=== PATIENT | male | born 1955 | race Caucasian/White ===

== ENCOUNTER 2018-01-01 18:50 | Inpatient (IN) | payer OTHER ==
[~2018-01-01] VITALS: Ht 175.3 cm; Wt 74.4 kg
--- NOTE | 2018-01-01 22:45 | NUR ---
PT ARRIVED TO FLOOR VIA STRETCHER. PT ABLE TO STAND AND TRANSFER TO THE BED. PT RATING PAIN AT 6/10. STATES THAT HIS PAIN IS OK AT THIS TIME. PT DENIES NAUSEA OR SOB. LUNG SOUNDS DIM AND CLEAR EXCEPT FOR CRACKLES TO LLL. ABD MILDLY DISTENDED, BT'S ACTIVE, TENDER TO PALPATION. PT REQUESTING CHOCOLATE MILK, REPORTS PREVIOUSLY POOR APPETITE AT HOME. PT REPORTS FALLING AFTER TRIPPING OUTSIDE RECENTLY. PT ORIENTED TO ROOM, REMINDED NOT TO AMBULATE OR ATTEMPT TO GET OUT OF BED WITHOUT ASSISTANCE. PT STATES UNDERSTANDING, CALL LIGHT IS IN PT'S LAP.
--- NOTE | 2018-01-02 01:31 | NUR ---
PT RESTING IN BED WITH EYES CLOSED. PT WAKES EASILY WHILE DATA CENTER TECHNICIAN AT BEDSIDE. PT DENIES NEEDS AT THIS TIME. CALL LIGHT WITHIN PT REACH.
--- NOTE | 2018-01-02 03:22 | NUR ---
PT RATES PAIN 7/10 TO R FLANK. STATES THAT SOB IS MINIMAL. PRN REQUESTED BY PT. PRN MORPHINE ADMINISTERED. PT DENIES OTHER NEEDS AT THIS TIME. CALL LIGHT WITHIN REACH.
--- NOTE | 2018-01-02 04:15 | NUR ---
PT ASSESSMENT COMPLETE. PT WAKES BRIEFLY DURING ASSESSMENT, QUICKLY FALLS BACK TO SLEEP. PT STATE THAT HE CAN FEEL PAIN MEDICATION WORKING. ASSESSMENT UNCHANGED FROM PRIOR. PT DENIES NEEDS AT THIS TIME. CALL LIGHT WITHIN REACH.
--- NOTE | 2018-01-02 04:54 | NUR ---
PT RESTING IN BED WITH EYES CLOSED. RESPIRATIONS EVEN AND UNLABORED. PT APPEARS TO BE SLEEPING. CALL LIGHT WITHIN REACH.
--- NOTE | 2018-01-02 05:38 | NUR ---
PT SLEPT MOST OF SHIFT. PAIN TO R FLANK. PRN MORPHINE X 1. LUNG SOUNDS CLEAR/DIM. ABD MILDLY DISTENDED, TENDER TO TOUCH. URINE DARK DORON IN COLOR. PT USES URINAL AT SIDE OF BED. NS @ 125. 1 PA.
--- NOTE | 2018-01-02 07:00 | NUR ---
HANDOFF REPORT RECEIVED FROM COST ESTIMATING CLERK RN. PT SLEEPING, LEFT UNDISTURBED.
--- NOTE | 2018-01-02 08:54 | NUR ---
PT RESTING IN BED. PT ON ROOM AIR, LUNG SOUNDS CLEAR. PT RATING PAIN 7/10, WORSE WITH MOVEMENT, REQUESTING PAIN MEDICATION, GIVEN 2 MG IV MORPHINE. PT BOWEL TONES ACTIVE, TOLERATING REGULAR DIET, SMALL APPETITE. IV FLUIDS INFUSING NS AT 125 ML/HR. PT REPORT OF RIGHT HAND NUMBNESS FOR SEVERAL MONTHS, AT BASELINE. PT PULSES PALPABLE. DISCUSSED PLAN OF CARE FOR THE DAY. PT DENIES OTHER NEEDS AT THIS TIME.
--- NOTE | 2018-01-02 09:27 | NUR ---
PATIENT RELAXED IN BED, EYES CLOSED, WAKING EASILY UPON CALLING HIS NAME. VITALS AND I/OS CHARTED. CALL LIGHT IN REACH PATIENT REFUSED ORDERING BREAKFAST, REQUESTED JELLO AND MILK.
--- NOTE | 2018-01-02 11:57 | NUR ---
PT RESTING IN BED. PT STATES PAIN IS OK AT THIS TIME, DISCUSSED CHANGES TO MEDICATIONS, PT UNDERSTANDS TO CALL WHEN NEEDING PAIN MEDICATION. PT ON ROOM AIR, LUNG SOUNDS CLEAR. BOWEL TONES ACTIVE, DENIES NAUSEA, PROVIDED WITH SODA. SCDS TO BLE, WITHOUT EDEMA. NO ACUTE CHANGES. PT DENIES OTHER NEEDS AT THIS TIME.
--- NOTE | 2018-01-02 13:19 | NUR ---
PT REQUESTING PAIN MEDICATION, DISCUSSED IV DILAUDID VS NORCO. PT PREFERED TO TRY NORCO, 1 TAB GIVEN, JELLO GIVEN WITH TABLET. PT INSTRUCTED TO CALL IF BEGINING TO FEEL NAUSEATED. PT DENIES OTHER NEEDS AT THIS TIME.
--- NOTE | 2018-01-02 13:56 | NUR ---
PATIENT UP IN BED, FAMILY IN RM TO TALK TO MONY GRANADOS. PATIENT HAD NO APPETITE FOR LUNCH, ATE A SMALL AMOUNT OF JELLO. VITALS AND I/OS CHARTED. CALL LIGHT IN REACH NO OTHER NEEDS.
--- NOTE | 2018-01-02 14:00 | NUR ---
PT SON TO BEDSIDE, REQUESTING UPDATE, PROVIDED. DISCUSSED CT SCAN RESULTS, PLAN OF CARE, GOALS FOR TOMORROW. PT SON, JARED, REQUESTING TO BE PRESENT WHEN DR. JAIMES ROUNDS ON PT TOMORROW, CALLED TO DISCUSS WHAT TIME JARED SHOULD BE AT HOSPITAL, JARED INSTRUCTED TO BE AT BEDSIDE AT 0700.
--- NOTE | 2018-01-02 14:30 | NUR ---
PT REQUESTING PAIN MEDICATION, TOLERATED 1 TAB NORCO WITHOUT NAUSEA, GIVEN SECOND TAB NORCO. PT GIVEN COOL CLOTH FOR FOREHEAD. PT DENIES OTHER NEEDS AT THIS TIME.
--- NOTE | 2018-01-02 18:00 | NUR ---
PATIENT SITTING UP IN BED, ATTEMPTING TO EAT DINNER. PATIENTS FAMILY IN ROOM. PATIENT CALL LIGHT IN REACH. ZEYNEP RINCON TOOK VITALS AND I&O'S. NO OTHER NEEDS AT THIS TIME.
--- NOTE | 2018-01-02 18:53 | NUR ---
PT ON ROOM AIR, LUNG SOUNDS CLEAR. PT WITH RUQ ABD PAIN, GIVEN 2 TAB NORCO THIS EVEING, IV DILAUDID AVAILABLE. PT WITH SCDS TO BLE. BOWEL TONES ACTIVE, DENIES NAUSEA, TOLERATING CLEAR LIQUID DIET, SMALL APPETITE. PT VOIDING IN URINAL, QS, DARK URINE. PT UP WITH 1PA, WEAK. D5LR AT 125ML/HR. PLAN TO DISCHARGE TOMORROW PENDING CASE MANAGEMENT/HOSPICE.
--- NOTE | 2018-01-02 21:41 | NUR ---
PT ASSESSMENT COMPLETE. PT STATES THAT PAIN IS WELL CONTROLLED AT THIS TIME. PT DENIES SOB, NAUSEA. LUNG SOUNDS CLEAR INB BILATERAL UPPER LOBES, DIMINISHED IN BILATERAL LOWER LOBES. ABD DISTENDED. BT'S ACTIVE. PT DENIES BM TODAY, REPORTS PASSING FLATUS. ABD TENDER TO PALPATION. SCD'S IN PLACE. PT UP TO EDGE OF BED TO USE URINAL WITH 1 PA. TOLERATED WELL. URINE REMAINS DARK IN COLOR. PT ASSISTED BACK TO BED. DENIES NEEDS AT THIS TIME. CALL LIGHT WITHIN REACH.
--- NOTE | 2018-01-02 23:55 | NUR ---
PT RESTING IN BED WITH EYES CLOSED. RESPIRATIONS EVEN AND UNLABORED. PT APPEARS TO BE SLEEPING. CALL LIGHT WITHIN PT'S REACH.
--- NOTE | 2018-01-03 02:04 | NUR ---
PT ASSESSMENT COMPLETE. PT UTILIZES CALL LIGHT, REPORTS THAT HE HAS BEEN COUGHING AND IS EXPERIENCING AN INCREASE IN R FLANK PAIN. PT REQUESTS PRN PAIN MEDICATION. NORCO X1 TAB ADMINISTERED. LUNG SOUNDS CLEAR/DIM. OCCASIONAL PRODUCTIVE COUGH. ABD REMAINS DISTENDED, BT'S ACTIVE, ABD TENDER TO PALPATION. PT DENIES FURTHER NEEDS AT THIS TIME. CALL LIGHT WITHIN REACH.
--- NOTE | 2018-01-03 03:10 | NUR ---
PT RESTING IN BED WITH EYES CLOSED. RESPIRATIONS EVEN AND UNLABORED. PT APPEARS TO BE SLEEPING. CALL LIGHT WITHIN REACH.
--- NOTE | 2018-01-03 06:35 | NUR ---
PT SLEPT WELL THROUGHOUT THE NIGHT. PRN NORCO X 1 FOR PAIN. NO SOB OR NAUSEA. ABD TENDER TO TOUCH. PT USES URINAL AT BEDSIDE. UO QS. URINE DORON IN COLOR. 1 MARICRUZ. D5LR @ 125. CLEAR LIQ DIET.
--- NOTE | 2018-01-03 07:35 | NUR ---
THIS RN TO BEDSIDE FOR CONSULT WITH MD, PT AND FAMILY. MD TALKING WITH FAMILY AND PT ABOUT OPTIONS, PROGNOSIS, AND PLAN OF CARE. PT AND FAMILY INVOLVED AND ASKING QUESTIONS. FAMILY VERBALIZE MINIMAL UNDERSTANDING OF INFORMATION PRESENTED BY MED. FAMILY CONTINUES ASKING FOR "A CURE TO GET HIM ALL BETTER BEFORE HE LEAVES THIS HOSPITAL." MD RE-VERBALIZES PLAN OF CARE FOR THIS HOSPITAL STAY. AFTER CONSULT, THIS RN PERFORMS PT ASSESSEMENT. PT REPORTS 6/10 PAIN. (SEE MAR FOR MEDICATION GIVEN.). STRAWBERRY ENSURE PROVIDED PER PT REQUEST. BED RAILSUP. CALL LIGHT WITHIN REACH. FAMILY AT BEDSIDE.
--- NOTE | 2018-01-03 08:10 | NUR ---
PT SLEEPING. NO FAMILY IN ROOM.
--- NOTE | 2018-01-03 08:46 | NUR ---
PATIENT LIGHTLY AWAKES WHEN SPOKEN TO. PATIENT RESTING IN BED, EYES CLOSED. CALL LIGHT IN REACH. NO OTHER NEEDS AT THIS TIME.
--- NOTE | 2018-01-03 09:10 | NUR ---
PATIENT STATES HE WOULD LIKE TO SHOWER LATER TODAY AFTER THERAPY. PATIENT REQUESTED TO REST UNTIL THERAPY COMES IN. CALL LIGHT IN REACH. NO OTHER NEEDS AT THIS TIME.
--- NOTE | 2018-01-03 10:00 | NUR ---
PT APPEARS SLEEPING. SPOKE WITH STAFF NURSE, STATES HE WAS SLEEPING ALOT BETWEEN THINGS.
[2018-01-03] MEDS ORDERED: VENTOLIN HFA18 GM INH (10:02)
--- NOTE | 2018-01-03 10:10 | NUR ---
THIS RN TO ROOM TO CHECK ON PT AND REASSESS PAIN. PT REPORTS IMPROVED PAIN NOW AT 4/10 AND STATES PAIN IS TOLEARABLE AT THIS TIME. PT DROWSY, SLURRED SPEECH NOTED. PT REPORTS SOB. PT REPOSISITONED IN BED. NO S/S OF SOB NOTED WITH MOVEMENT. PT STATES HE USES ALBUTEROL INHALER AT HOME AND WOULD LIKE TO USE ONE NOW BUT DOES NOT HAVE IT WITH HIM. MD NOTIFIED. ALBUTEROL NEBULIZER ORDERED. RT CALLED. RT AT BEDSIDE GIVING NEB REQUESTED BY PT. PT STATES HE HAS NO ADDITIONAL REQUESTS OR COMPLAINTS AT THIS TIME. FAMILIY AT BEDSIDE. CALL LIGHT WITHIN REACH.
--- NOTE | 2018-01-03 11:40 | NUR ---
FOCUSSED ASSESSMENT DUE. THIS RN TO ROOM. PT UP TO EDGE OF BED EATING SOUP. PT REPORT 4/10 PAIN AND STATES HE WOULD LIKE MORE PAIN MEDICAITON. PT ALSO REQUESTS ANOTHER STRAWBERRY SHAKE. FOCUSSED ASSESSMENT DONE. PT REPORTS PASSING GAS BUT STILL NO BM. STRAWBERRY SHAKE PROVIDED. SEE MAR FOR PAIN MEDICATION GIVEN. CALL LIGHT WITHIN REACH. PT STATES HE HAS NO ADDITIONAL REQUESTS OR COMPLAINTS.
--- NOTE | 2018-01-03 12:15 | NUR ---
PT APPEARS SLEEPING. CALLED BRANDEE COLEMAN AT [phone]. PLAN IS TO MEET IN PATIENTS ROOM AT 1330 TODAY.
--- NOTE | 2018-01-03 12:17 | NUR ---
THIS RN NOTIFIED THAT PT HAS NOT HAD A BM IN A WEEK. STATES TO GIVEN MIRALAX 17G PO BID. ORDER PLACED.
--- NOTE | 2018-01-03 12:27 | NUR ---
MEDICATION (MIRALAX) GIVEN ORDERED. PT VISITING WITH CREATIVE RESOURCE MANAGER. NO REQUESTS OR COMPLAINTS.
[2018-01-03] MEDS ORDERED: ALBUTEROL2.5 MG/3 M INH (12:36)
--- NOTE | 2018-01-03 12:53 | NUR ---
PATIENT RESTING IN BED, WHEN ASKED IF HE IS READY TO SHOWER PATIENT STATES HE NEEDS TO REST AWHILE LONGER FIRST. PATIENT CALL LIGHT IN REACH. NO OTHER NEEDS AT THIS TIME. THIS ELEMENTARY INSTRUCTIONAL COACH WILL REAPPROACH AT A LATER TIME.
--- NOTE | 2018-01-03 13:30 | NUR ---
FAMILY NOT PRESENT AT 1330. ARRIVED AT 1345. CARE CONFERENCE DISCUSSED BY PHONE WITH DR JAIMES THIS PATIENTS DIAGNOSIS. HE STATES HE WILL DO WHAT PATIENT WANTS, WHICH SO FAR HAS BEEN TO NOT TREAT. HE STATES PATIENT IS WAITING TO DISCUSS WITH FAMILY HIS WISHES. DR JAIMES STATES HE WILL ORDER ONCOLOGY CONSULT IF PATIENT DESIRES OR HOSPICE IF THAT IS WHAT HE DESIRES. DR LUTZ TO MAKE IT TO ROOM FOR MEETING WITH PATIENT AND FAMILY AT THIS TIME. MET WITH PATIENT, SON JARED AND PATIENTS SIGNIFICANT OTHER. ALSO IN ROOM IS GUILLERMINA RUCKER FOR PART OF DISCUSSION. DISCUSSED FINDINGS OF CT SCAN. DISCUSSED OPTIONS AVAILABLE INCLUDING TREATMENT OR NOT. DISCUSSED POSSIBLE HOSPICE INFORMATION IF DESIRED. PATIENT STATES HE KNOWS ABOUT CANCER AND SUCH. 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 HE STATES HE DOES NOT WANT "TO BE CUT AND PRODED". DISCUSSED THAT BIOPSY CAN BE DONE TO DETERMINE EXACT DIAGNOSIS, ETC. HE STATES "NOPE". PATIENTS SON ALSO SPOKE WITH HIM AT LENGTH ABOUT WHAT HE WANTS. PATIENT IS ADAMAT HE WANTS TO GO HOME AND BE LEFT ALONE. WE DISCUSSED THAT HE HAS NO PCP. WE DISCUSSED THAT HE WILL REQUIRE PAIN MEDS AT LEAST. HE STATES HE WILL SEE DR JAIMES. HE DID ASK ABOUT HOSPICE. SON ALSO ASKING WHAT THIS IS ABOUT. DISCUSSED AT LENGTH THAT HOSPICE CAN PROVIDE SYMPTOM CONTROL WHILE LETTING NATURE TAKE IT'S COURSE. DISCUSSED THAT TO BE HOME ON HOSPICE EITHER FAMILY OR CAREGIVERS WILL NEED TO BE AVAILABLE 24/ TO PROVIDE HELP WITH MEDICATIONS, PERSONAL CARE SUCH TOILETING AND BATHING ETC. PATIENTS SON STATES HE WORKS, BUT THAT HE THINKS BETWEEN HE AND OTHER FAMILY THIS COULD BE DONE. PATIENTS SIGNIFICANT OTHER LIVES WITH PATIENT BUT SHE HAS LIMITED PHYSICAL ABILITIES. SON WANTS TO HELP HIS DAD GO HOME. WE DISCUSSED THAT THERE ARE FACILITIES HE COULD GO TO FOR THE CARE WHILE STILL RECEIVING HOSPICE. PATIENT BECAME UPSET "I'M NOT GOING TO NO GROUP HOME". SON STATES "I DON'T WANT HIM TO HAVE TO DO THAT". THEY ARE OPEN TO RECEIVING MORE INFORMATION FROM HOSPICE PROGRAM. I DID DISCUSS THAT TO BE ON HOSPICE, YOU CAN GET TREATED FOR SYMPTOM CONTROL BUT NOT FOR CURE. PATIENT STATES "THATS WHAT I WANT". SON HAS PAPERWORK FOR ADVANCE DIRECTIVE IN ROOM. ASKING ABOUT POWER OF GENETIC SCIENTIST. ALSO ABOUT EQUIPEMENT FOR HOME. THEY AGREE TO SPEAK WITH LAN MANAGER FROM HOME HEALTH AND HOSPICE PROGRAM. CALLED HOME HEALTH DEPARTMENT, SPOKE WITH CLEMENT WADDELL WHO STATES HE WILL COME VISIT WITH THEM WITHIN THE HOUR.
--- NOTE | 2018-01-03 13:39 | NUR ---
STOPPED BY PT'S RM, RN JOSIAH JUST FINISHING UP CHARTING. PT WELCOMED ME AND SHOOK MY HAND. JUST FELT I SHOULD TOUCH BASES WITH PT, EXTENDED A BLESSING AND HE THANKED ME. LET HIM KNOW I WOULD STOP BY TOMORROW, HE SMILED AND KNODDED. WILL FOLLOW NEEDED
--- NOTE | 2018-01-03 14:19 | NUR ---
THIS RN TO ROOM TO CHECK ON PT. PT REPORTS 4/10 PAIN THAT IS "FINE FOR NOW." PT REPOSITIONED IN BED. FAMILY AT BEDSIDE. CALL LIGHT WITHIN REACH. BED RAILS UP.
--- NOTE | 2018-01-03 14:28 | NUR ---
PATIENT RESTING IN BED, FAMILY IN ROOM. PATIENT REFUSED TO GET UP TO USE THE BATHROOM. RN NOTIFIED. NO KNOWN OUTPUT SINCE 1000. NO OTHER NEEDS AT THIS TIME.
--- NOTE | 2018-01-03 14:36 | NUR ---
MONY RAHMAN PURSUADED PATIENT TO USE URINAL. PATIENT HAD 450 OUTPUT, MONY RAHMAN NOTICED URINE WAS SLIGHTLY DORON IN COLOR. NO OTHER NEEDS AT THIS TIME.
--- NOTE | 2018-01-03 14:37 | NUR ---
FURNITURE FABRICATOR NOTES THAT PT HAS NOT VOIDED SINCE THIS AM. THIS RN TO ROOM. PT ASKED TO VOID. PT ABLE TO VOID 450ML, DORON URINE WITHOUT ISSUE. PT BACK TO BED. PT STATES HE IS "REALLY, REALLY TIRED." FAMILY AT BEDSIDE. BED RAILS UP. CALL LIGHT WITHIN REACH.
--- NOTE | 2018-01-03 15:45 | NUR ---
SUMMER CHW SPOKE WITH PATIENT AND FAMILY AGAIN REGARDING INSURANCE AND ADVANCE DIRECTIVES. SHE STATES TILE MECHANIC HELPER CAME TO SPEAK WITH THEM, ALSO.
--- NOTE | 2018-01-03 17:41 | NUR ---
AFTERNOON ASSESSMENT DUE. THIS RN TO BEDSIDE. PT RESTING WITH EYES CLOSED, RR = 18 BPM. PT AWAKENS TO VOICE. PT REPORTS 5/10 PAIN THAT IS TOLERABLE AND STATES HE DOES NOT WANT PAIN MEDICAITON AT THIS TIME. CHOCOLATE ENSURE PROVIDED. SHOWER OFFERED, PT STATES HE IS "VERY TIRED" AND JUST WANTS TO NAP. BED RAILS UP. CALL LIGHT WITHIN REACH.
--- NOTE | 2018-01-03 17:41 | NUR ---
PATIENT RESTING IN BED. PATIENT REFUSED SHOWER, AND STATED HE DIDNT NEED TO URINATE. THIS CARE PROGRAM RESIDENT EXPLAINED TO PATIENT THAT WE WOULD NEED HIM TO HAVE AN OUTPUT SOON, PATIENT STATES HE WOULD CALL WHEN HE WAS READY. RN IN ROOM. PATIENT SITTING UP IN BED, VITALS TAKEN. THIS CARE PROGRAM RESIDENT WILL RETURN TO FINISH I&O'S AT A LATER TIME.
--- NOTE | 2018-01-03 18:04 | NUR ---
PT HERE FORCHOLEANIOCARCENOMA, NEW DIAGNOSIS. HOSPICE AND CASE MANAGMENT CONSULT TODAY. PHYSICAL THERAPY TODAY. PT DECLINES SHOWER: NEEDS ON TONIGHT IF POSSIBLE. MIRALAX GIVEN TODAY. ADD ON LAB UNDER A NURSE NOTIFY ORDER, LAB AWARE. DIET TOLERATED, ENSURE ENCOURAGED. PT USING CALL LIGHT INCONSISTANTLY.
--- NOTE | 2018-01-03 19:05 | NUR ---
REPORT RECEIVED FROM OFFGOING RN. PT RESTING IN BED WITH EYES CLOSED, APPEARS TO BE SLEEPING. PT NOT DISTURBED FOR REPORT PER HIS REQUEST.
--- NOTE | 2018-01-03 22:16 | NUR ---
PT ASSESSMENT COMPLETE. PT DENIES PAIN, NAUSEA, SOB AT THIS TIME. PT HAS OCCASIONAL PRODUCTIVE COUGH. ABD DISTENDED. BT'S ACTIVE. ABD TENDER TO PALPATION. PT DENIES NEEDS AT THIS TIME. CALL LIGHT WITHIN REACH.
--- NOTE | 2018-01-04 01:46 | NUR ---
PT RSTING IN BED WITH EYES CLOSED. RESPIRATIONS EVEN AND UNLABORED. PT APPEARS TO BE SLEEPING. PT DOES NOT WAKE WHILE POWDER CUTTING OPERATOR IN DOORWAY. NO S/SX OF DISTRESS NOTED. CALL LIGHT WITHIN PT REACH.
--- NOTE | 2018-01-04 05:02 | NUR ---
PT ASSESSMENT COMPLETE. PT STATES THAT PAIN IS WELL CONTROLLED AT THIS TIME. LUNG SOUNDS CLEAR/ DIM. BT'S ACTIVE. ABD DISTENDED, REMAINS TENDER. PT DENIES NEEDS AT THIS TIME. CALL LIGHT WITHIN REACH. PT REQUESTS NOT TO BE DISTRUBED FOR BEDSIDE REPORT IF HE IS SLEEPING.
--- NOTE | 2018-01-04 05:05 | NUR ---
PT SLEPT VERY WELL THIS SHIFT. PT AGREED HE WAS VERY TIRED. PAIN WELL CONTROLLED. NO BM THIS SHIFT. BT'S ACTIVE. DIET TOLERATED. PT DRANK SMALL AMOUNT OF ENSURE THIS SHIFT. 1 PA TO BATHROOM. D5LR @ 125.
--- NOTE | 2018-01-04 09:13 | NUR ---
MORNING ASSESSMENT AND MEDICATIONS DUE. THIS RN TO BEDSIDE. PT REPORTS SHORTNESS OF BREATH, RT CALLED FOR BREATHING TREATMENT. PT REPOSITIONED IN BED. PT ASSISTED UP TO VOID. PT UNWILLING TO WALK TO RESTROOM ("i'M TOO TIRED"). URINAL USED AT SIDE OF BED. PT REPORTING 7/10 PAIN (SEE MAR FOR MEDICATIONS GIVEN). ASSESSMENT DONE. PT APPEARS MILDLY DIAPHORETIC. PT REPORTS LACK OF ENERGY THIS AM AND APPEARS MORE LETHARGIC THAN YESTERDAY. MEDICATIONS GIVEN ORDERED. PT RECIEVED BREATHING TX (THIS RN AT BEDSIDE FOR TX). HOSPICE ARRIVED, PT TALKING WITH HOSPICE. BED RAILSUP. CALL LIGHT WITHIN REACH.
--- NOTE | 2018-01-04 10:33 | NUR ---
PATIENT STOOD AT SIDE OF BED TO VOID IN URINAL. RN IN ROOM. PATIENT NOW SITTING UP IN BED. RTHERAPY IN ROOM FOR BREATHING TREATMENT. VITALS AND I&Os DONE. CALL LIGHT WITHIN REACH. NO OTHER NEEDS AT THIS TIME.
--- NOTE | 2018-01-04 11:30 | NUR ---
PT FAMILY LEAVING FOR THE DAY. THIS RN TO BEDSIDE TO CHECK ON PT. PT REPORTS THAT HE WOULD LIKE TO "TAKE A NAP AND THEN SHOWER." PT REQUESTS TO BE LEFT ALONE FOR HIS NAP. NAP TIME SIGN PLACED ON PTS DOOR. PT STATES HE HAS NO ADDITIONAL REQUESTS OR COMPLAINTS AT THIS TIME.
--- NOTE | 2018-01-04 12:55 | NUR ---
THIS RN TO ROOM TO CHECK ON PT. PT RESTING WITH EYES CLOSED, RR = 16 BPM. BED RAILS UP. CALL LIGHT WITHIN REACH.
--- NOTE | 2018-01-04 13:04 | NUR ---
PATIENT RESTING IN BED AND APPEARS TO BE SLEEPING. NO OTHER NEEDS AT THIS TIME.
--- NOTE | 2018-01-04 13:30 | NUR ---
FAXED CHART NOTES INCLUDING FACESHEET, ER NOTES, H AND P, CONSULT, MEDS, AND IMAGING TO HOSPICE AFTER TALKING WITH BHARATI. BHARATI STATED DR JONES WILL BE TAKING THIS PT ON FOR HOSPICE.
--- NOTE | 2018-01-04 14:33 | NUR ---
PT HAS MADE DECISION TO BE COMFORT MEASURES ONLY. HIS SON IN WITH PT, I INTRODUCED MYSELF, AND PT SHOOK MY HAND. I SHARED I KNOW THIS IS A VERY DIFFICULT TIME, AND AM HERE TO ASSIST IN ANY WAY. SON MENTIONED THAT HE WAS GOING TO GO OVER ADV. DIRECTIVE WITH PT. I ASKED IF HE WOULD LIKE ME TO KEEP STAFF AND ANY VISITORS OUT. HE SAID HE WOULD APPRECIATE. I EXTENDED A BLESSING AND ZEYNEP SAL PLACED A "NO VISITORS" SIGN ON DOOR. WILL FOLLOW NEEDED
--- NOTE | 2018-01-04 14:47 | NUR ---
PUMP ALARMING, IV FLUID BAG EMPTY. THIS RN TO ROOM. NEW BAG OF FLUIDS HUNG. PT REPORTS 5/10 PAIN THAT IS TOLERABLE AND STATES HE DOES NOT WANT PAIN MEDICAITON AT THIS TIME. BED RAILS UP. CALL LIGHT WITHIN REACH. SON AT BEDSIDE.
--- NOTE | 2018-01-04 17:21 | NUR ---
THIS RN TO ROOM TO CHECK ON PT. PT RESTING WITH EYES CLOSED, RR= 14 BPM. BED RAILS UP. CALL LIGHT WITHIN REACH.
--- NOTE | 2018-01-04 18:10 | NUR ---
PT STATUS CHANGED TODAY TO COMFORT CARE. 1PA, FULL DIET - PT PREFERS ENSURE. MINIMAL APPITITE TODAY. HOSPICE WORKING ON TRANSFER. PRN PAIN MEDICATIONS GIVEN ON PT REQUEST. PT YET TO SHOWER TODAY. IV FLUIDS CONTINUE WITH COMFORT CARE ORDERS. PT SLEEPY TODAY. USING CALL LIGHT OCCATIONALLY.
--- NOTE | 2018-01-04 18:12 | NUR ---
PATIENT RESTING IN BED AND APPEARS TO BE SLEEPING. ROOM TIDIED UP. PATIENT HAS NOT TOUCHED DINNER TRAY. THIS CLEANING AND WASHING EQUIPMENT OPERATOR AND RN ASKED PATIENT MULTIPLE TIMES DURING THE SHIFT TO ASSIST WITH A SHOWER. PATIENT STATED LATER MANY TIMES AND REFUSED THE LAST TIME ASKED. CALL LIGHT WITHIN REACH. NO OTHER NEEDS AT THIS TIME.
--- NOTE | 2018-01-04 19:30 | NUR ---
IN ROOM FOR REPORT, PT REQUESTED NEB TRT AND RT WAS CALLED. PT ALSO USED URINAL. PT IS REQUESTING PAIN MEDICINE AT THIS TIME. WILL LOOK AT ORDERS AND RETURN AFTER REPORT IS COMPLETE. CALL LIGHT IS WITHIN REACH.
--- NOTE | 2018-01-04 20:10 | NUR ---
IN ROOM TO ADMINISTER MEDICATIONS, PT IS AWAKE IN BED EATING ICECREAM. HIS SONS ARE IN THE ROOM WELL AND ASKING ABOUT HOW TO GET PT DENTAL WORK. TOLD SON THAT I HAD NOT HEARD OF A DENTIST COMING INTO THE HOSPITAL BUT HE COULD TALK TO BLIND LACER OR HOSPICE ABOUT IT DURING THE DAY TOMORROW. PT STATES PAIN IS AT 5/10 AT THIS TIME AND WAS GIVEN 2 NORCO. PT DENIES NEED FOR OTHER MEDICATIONS AT THIS TIME BESIDES MIRALAX. CALL LIGHT IS WITHIN REACH.
--- NOTE | 2018-01-04 20:20 | NUR ---
DIRECT MARKETING EXECUTIVE CALLED DR JAIMES TO CONFIRM WHICH IV FLUID HE WOULD LIKE THE PT TO HAVE. NEW ORDERS PLACED.
--- NOTE | 2018-01-04 23:12 | NUR ---
PT IS RESTING WITH EYES CLOSED, RESPIRATIONS ARE EVEN AND NONLABORED. CALL LIGHT IS WITHIN REACH.
--- NOTE | 2018-01-05 00:41 | NUR ---
PT IS RESTING WITH EYES CLOSED, RESPIRATIONS ARE EVEN AND NONLABORED. CALL LIGHT IS WITHIN REACH.
--- NOTE | 2018-01-05 01:40 | NUR ---
PT IS RESTING WITH EYES CLOSED, RESPIRATIONS ARE EVEN AND NONLABORED. CALL LIGHT IS WITHIN REACH.
--- NOTE | 2018-01-05 02:16 | NUR ---
PATIENT CALLED TO USE THE BATHOOM. 1 PA. 7 UP GIVEN. PATIENT IS BACK IN BED. CALL LIGHT IN REACH.
--- NOTE | 2018-01-05 03:32 | NUR ---
PT IS RESTING WITH EYES CLOSED, RESPIRATIONS ARE EVEN AND NONLABORED. CALL LIGHT IS WITHIN REACH.
--- NOTE | 2018-01-05 04:25 | NUR ---
PT IS RESTING WITH EYES CLOSED, RESPIRATIONS ARE EVEN AND NONLABORED. CALL LIGHT IS WITHIN REACH.
--- NOTE | 2018-01-05 04:46 | NUR ---
PT WOKE WHEN IV BEEPED. NEW BAG IS UP AND PT DENIES NEED FOR PAIN MEDICINE AT THIS TIME. CALL LIGHT IS WITHIN REACH.
--- NOTE | 2018-01-05 04:52 | NUR ---
IV FLUIDS CHANGED FROM D5LR TO D51/2NS AT 125MLS/HR. PT HAS POOR INTAKE ON FULL LIQUID DIET TOLERATED, OFFER CHOCOLATE OR STRAWBERRY ENSURE. MIRALAX WAS GIVEN LAST NIGHT, LAST BM WAS THE 6TH. PT IS COMFORT MEASURES ONLY AND HAS NOT HAD MUCH URINE OUTPUT. PT REQUESTED PRN NEB TRT ONCE BEFORE BEDTIME AND WAS GIVEN 2 NORCO AT 1957. THIS MORNING PT DENIED NEED FOR PAIN MEDICATIONS. PT IS 1PA AND USES URINAL AT BEDSIDE.
--- NOTE | 2018-01-05 06:01 | NUR ---
PT CALLED TO USE THE URINAL. STOOD AT BEDSIDE, COMPLAINED OF 6/10 PAIN, MED WTIH 2 NORCO. VOIDED 600 BACK TO BED, CALL LIGHT WITHIN REACH.
--- NOTE | 2018-01-05 08:54 | NUR ---
PT REFUSED HEPARIN AND MIRLAX THIS AM. PT COMFORT MEASURES.
--- NOTE | 2018-01-05 09:26 | NUR ---
PATIENT RESTING IN BED, CALL LIGHTIN REACH, NO OTHER NEEDS AT THIS TIME.
--- NOTE | 2018-01-05 10:10 | NUR ---
PT RESTING SUPINE IN BED, EYES CLOSED RR EVEN/SHALLOW 18. NO DISTRESS NOTED. PT APPEARS TO BE SLEEPING AT THIS TIME
--- NOTE | 2018-01-05 12:10 | NUR ---
PT UP TO BATHROOM REPORTS PAIN 4/10, HE SAID HE WOULD LIKE A PAIN PILL AND AND ICE CREAM CUP AFTER HE SHOWERS. GIN FEEDER IN PT ROOM AT THIS TIME TO ASISST WITH SHOWER
--- NOTE | 2018-01-05 12:55 | NUR ---
THIS BANDER AND CELLOPHANER HELPER MACHINE ASSISTED PATIENT UP FROM BATHROOM INTO SHOWER. PATIENT SHOWERED INDEPENDENTLY. PATIENT DRESSED IN CLOTHES FROM HOME, PATIENT'S IV SITE WAS SATURATED WITH WATER FROM SHOWER, RN NOTIFIED. PATIENT HAD LOUD POPPING IN HIS CHEST NEAR HIS STERNUM WHILE MOVING CAUSING BREIF PAIN. RN NOTIFIED. PATIENT RESTING IN BED, LINENS CHANGED. CALL LIGHT IN REACH. RN APPROVED THIS BANDER AND CELLOPHANER HELPER MACHINE TO REMOVE PATIENT'S IV. PATIENT'S IV WAS REMOVED, TIP IN TACT, NO SWELLING OR REDNESS AT SITE. RN NOTIFIED. NO OTHER ENEDS AT THIS TIME.
[2018-01-05] MEDS ORDERED: HALOPERIDOL0.5 MG PO ×2 (14:08→14:10)
--- NOTE | 2018-01-05 14:15 | NUR ---
PATIENT RESTING IN BED, CALL LIGHT IN REACH. NO OTHER NEEDS AT THIS TIME.
[2018-01-05] MEDS ORDERED: MORPHINE S100 MG/5 M PO (14:21)
[2018-01-05] MEDS ORDERED: LEVSIN0.125 MG PO (14:22)
--- NOTE | 2018-01-05 14:43 | NUR ---
I HAVE FELT PT AND FAMILY HAVE BEEN OVERWHELMED THIS WEEK. STOPPED BY TO CHECK WITH PT. HE WAS RESTING IN BED, WELCOMED ME INTO HIS RM USUAL.I EXTENDED A BLESSING TO HIM, ASKED IF HE HAD ANYTHING THAT HE NEEDED HELP WITH. HE STATED THAT HOSPICE WAS WORKING ON GETTING A BED FOR HOME, AND A FEW OTHER THINGS. PT MENTIONED THAT HIS PAIN WAS CONTROLLED. PT THANKED ME FOR THE VISIT, HE SMILED AND SHOOK MY HAND. RESPECT WAS SHARED BETWEEN US, WILL CONTINUE TO FOLLOW
--- NOTE | 2018-01-05 16:00 | NUR ---
PT AND FAMILY READY TO DISCHARE PT ALREADY IN WHEELCHAIR WITH FAMILY ASSISTANCE. PT FAMILY HAD HIM AT THE DOOR OF THE ROOM. THIS RN IN TO PT ROOM TO GIVE DISCHARGE EDUCATION. PT WHEEL DOWN TO DISCHARGE BY THIS RN AT FRONT OF HOSPITAL, AT THIS TIME THE SON QUIQUE LACEY VERBAIZES MULTIPLE COMPLAINTS ABOUT PT CARE AND PT NOT HAVING PAIN MEDICATION AT HOME DUE TO FAMILY AND PT DECIDING TO NOT DISCHARGE ON HOSPICE WAS PLANNED AND ORDERS WRITTEN THIS AM. THIS RN VERBALIZED TO QUIQUE THAT THE SCRIPT FOR HOSPICE MEDICATIONS CAN BE GIVEN TO HIM TO HAVE FILLED AT A PHARMACY, THE SCRIPTS MAY BE EXPENSIVE. QUIQUE SAID HE HAD FILLED OUT THE FORMS FOR [facility] AND THAT SHOULD COVER THE COST. QUIQUE AND RN WALKED BACK TO MEDICAL FLOOR TO RETRIEVE THE SCRIPTS ABBI ASSISTANT FOOD SERVICE MANAGER EXPLAINED TO QUIQUE THAT THE [facility] IS PENDING YET IT CAN TAKE UP TO 5 DAYS TO BE CONFIRMED FOR COVERAGE. THE HOSPITAL STAY WILL BE PAYED THROUGH CHARITABLE SERVICES OF THIS HOSPITAL. PT HAD MORE QUESTIONS AND CONCERNS ABOUT MEDICATION WRITTEN FOR HOSPICE. RICK FROM PHARMACY AT NURSES STATION AVAILABLE FOR PT CONSULTATION. RICK LOOKED UP DOSE EQUIVALENT FOR [facility]CO AND MORPHINE CONCENTRATE. QUIQUE WAS WATCHING HER AND VERBALIZED "IF ALL SHE IS DOING IS GOOGLE THE INFORMATION I CAN DO THAT" THIS RN EDUCATED QUIQUE THAT RICK IS USING PHARMALOGICAL SITES TO COMPARE THE MEDICATIONS. PT VERBAIZED THAT HE FELT COMMUNICATION WAS SERIOUSLY LACKING. RICK SAID SHE WOULD FILL THE SCRIPTS FROM OUR PHARMACY AT THIS TIME, THAT IT IS NOT PROTOCOL BUT IN EMERGENCY WE CAN FILL IMPORTANT MEDICATIONS. QUIQUE VERBAIZED THE RELIEF OF NOT HAVINIG TO WORRY ABOUT FILLING THE MEDICATIONS AND NOT BEING ABLE TO AFFORD THEM. QUIQUE WANTED A COPY OF HIS FOR TO [place] AND WHEN WE WERE UNABLE TO PRODUCE IT AT THE NURSES STATION HE SAID "THIS IS FUCKING STUPID" AT THIS TIME ISABELLE MEDICAL SURGICAL RETAIL ACCOUNT EXECUTIVE IS PRESENT AT THE NURSES STATION TRYING TO ASSIST WITH SERVICE RECOVERY. QUIQUE IS GOING TO LEAVE AND TAKE HIS FATHER HOME THEN COME BACK TO COLLECT THE MEDICATIONS IN ONE HOUR. QUIQUE SHAKED MY HAND AND THANKED ME FOR MY ASSISTANCE AND LEFT. QUIQUE VERBALIZED HE PLANS TO TAKE HIS FATHER TO [facility] TO OBTAIN A SECOND OPINION.
--- NOTE | 2018-01-05 17:07 | NUR ---
LATE ENTRY: BHARATI FROM HOME HEALTH WAS HERE TO UPDATE US ABOUT THE PATIENTS DISCHARGE. THERE WAS MORE MISCOMMUNICATION BETWEEN THE FAMILY AND WHAT THEY WANTED TO DO FAR THE DISCHARGE. THE NIECE WAS WANTING TO BRING THE UNCLE HOME AND THE SON WHO WAS NOT HERE YET (BUT ON THE WAY) WANTED TO BRING HIS DAD TO [facility] FOR A SECOND OPINION. BHARATI SAID FOR NOW THEY ARE GOING TO BRING HIM HOME AND THEN TOMORROW IS GOING TO CALL BHARATI WITH THEIR DECISION ABOUT WHETHER OR NOT TO USE HOSPICE. ONCE THE WHOLE FAMILY WAS HERE IT BECAME KIND OF A CLUSTER AND THEY JUST WANTED TO LEAVE, THE SON THEN CAME BACK WITH NURSE ADITI AND HE WAS EXTREMELY UPSET ABOUT THE MISCOMMUNICATION OF OUR STAFF. I COPIED SOME FINANCIAL PAPERWORK FOR HIM AND HE WANTED TO KNOW WHY WE DIDNT HAVE THE ANSWERS TO WHETHER OR NOT HIS INSURANCE WAS APPROVED YET. ADITI GOT ISABELLE TO OUR DEPARTMENT. HE WAS VERY DISRESPECTFUL. RICK FROM PHARMACY WAS ABLE TO GET HIM THE MEDICATION FOR THE NIGHT.
--- NOTE | 2018-01-11 08:16 | DS ---
[facility] [address], [place] [address] Signed ADMISSION DATE: 01/03/2018 DISCHARGE DATE: 01/05/2018 FINAL DIAGNOSIS: Metastatic cholangiocarcinoma. PROCEDURES: CT scan of abdomen and pelvis. 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 Consequently, he is familiar with end-of-life issues as well as terminal issues for cancer patients. He came to our emergency room with a 3-day history of very severe right upper quadrant abdominal pain radiating through to his back and dark urine. However, he said it has been bothering him from well over a month. He said he has been anorexic and losing weight as well. He clearly was cachectic, very tired, very weak, and if not a little bit jaundiced. White count was initially elevated. He is anemic and his liver function tests were elevated. The chest x-ray was unremarkable, but his CT scan showed the 2 cm lesion in the bile duct with the dilated bile ducts, and next that is a 4 cm mass pushing on the gallbladder in the pylorus. All the lymph nodes in the area are full and the entire right liver is filled with cancer. There is some question that he has some cirrhosis of the liver along with some mild portal hypertension along with some mild splenomegaly. Consequently, I was asked to admit him as a general surgeon. HOSPITAL COURSE: Josafat was admitted as above. We provided him with pain control, antiemetics, and some IV fluids. I met with Josafat and his son the following morning and had a long candid discussion. I had reviewed all the options with Josafat and his son. Josafat was not interested in anything aggressive. He wants to go back home on hospice care. In the meantime, his alpha-fetoprotein level came back elevated at 278. Here in the hospital then, we have been able to contact hospice and he has been accepted by Dr. Mon. As a result, we are going to be sending him home later today. DISCHARGE PLANS AND MEDICATIONS: Josafat is going to be discharged to home with our standard hospice care order set. Dr. Mon will be following him. Otherwise, Josafat has not had a primary care provider for over 40 years. He is welcome to take his diet as tolerated and activity as tolerated. We have also made arrangements for him to have a hospital bed at home. There is also arrangements being made for a new caregiver to take over for his current Electronically Signed By: RYANNE JAIMES MD 01/11/18 0816 PATIENT NAME: JOSAFAT LACEY DISCHARGE SUMMARY DATE OF : 55 REPORT #: [id number] PHYSICIAN: RYANNE JAIMES MD PCP: NO PRIMARY CARE PHYSICIAN REPORT IS CONFIDENTIAL AND NOT TO BE RELEASED WITHOUT AUTHORIZATION [facility] [address] [place] [id number] Signed client. This has all been discussed with Josafat now with myself, our discharge planners, and our nursing staff. He has expressed understanding and wishes to proceed as above. Ryanne Jaimes MD ALB/MODL /[id number] cc: MD Sp Mendez MD Copies: RYANNE JAIMES MD, MALCOLM MD ~ Electronically Signed By: RYANNE JAIMES MD 01/11/18 0816 PATIENT NAME: JOSAFAT LACEY DISCHARGE SUMMARY DATE OF : 55 REPORT #: [id number] PHYSICIAN: RYANNE JAIMES MD PCP: NO PRIMARY CARE PHYSICIAN REPORT IS CONFIDENTIAL AND NOT TO BE RELEASED WITHOUT AUTHORIZATION
--- NOTE | 2018-01-12 09:27 | CONS ---
[facility] [place] [facility] [address], [place] [address] Signed DATE OF CONSULTATION: 01/03/2018 CHIEF COMPLAINT: Right upper quadrant abdominal pain. 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 He likes to smoke up to half pack of cigarettes a day along with some marijuana. He said he usually has a couple of drinks a day. He currently lives here in [place] with his friend. He does drive and he has 3 children. His son, Alfonso Duval lives closest in [place], [place]. The other two are up in farther away. He said for least a month now he has been doing well, but over the last 3 days, he said he has had quite a bit of pain in the right upper quadrant radiating through to his back. He told me he has not been to doctor in 40 years. He said he has no appetite whatsoever and has not been eating and in addition, his urine has been quite dark. He came to the emergency room for evaluation. He is quite cachectic. He is very weak, very tired, although he has a pretty good historian given his background as a caregiver. He has firmness and tenderness in the right upper quadrant particularly along the lateral aspect of his liver. His white count was elevated. His hemoglobin is down. Sodium is down. Bilirubin is up at 1.3, AST 62, ALT 45, alkaline phosphatase is 126 with an albumin of 3.1 with bilirubin in his urine. He had a chest x-ray done because of the shortness of breath and it was fine. CT scan of abdomen and pelvis, however, showed cirrhosis of his liver with probable portal hypertension, some mild splenomegaly. His intrahepatic and extrahepatic bile ducts were dilated. He has a 2.5 cm mass in the distal common bile duct concerning for cholangiocarcinoma, although lymph nodes in that region are enlarged. There is also a 4 cm mass in the same area pushing on his gallbladder in the pylorus. His right side of his liver has innumerable metastatic lesions and there is a question whether he has a lesion at L5 along with some mild ascites. Given all of this, I was asked to admit him overnight as a general surgeon on-call. We have hydrated him overnight and provided him pain control. PAST MEDICAL HISTORY: None. PAST SURGICAL HISTORY: Appendectomy. SOCIAL HISTORY: Smokes half pack of cigarettes a day. He likes marijuana. He has 1-2 drinks a day. 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 More recently, he has had several patients including patients with cancer. His current patient is Griselda Malave, who is also his girlfriend. They live together in an apartment. Josafat usually does the driving. Josafat himself has 3 children, and his Electronically Signed By: RYANNE JAIMES MD 01/03/18 0649 Electronically Signed By: RYANNE JAIMES MD 01/12/18 1019 PATIENT NAME: JOSAFAT DUVAL CONSULTATION DATE OF : 55 REPORT #: [id number] PHYSICIAN: RYANNE JAIMES MD PCP: NO PRIMARY CARE PHYSICIAN REPORT IS CONFIDENTIAL AND NOT TO BE RELEASED WITHOUT AUTHORIZATION [address] [address] Signed son, Alfonso Duval, lives up in [place], [place]. We were not able to access his phone number today. FAMILY HISTORY: Mom had an CA, possibly an aneurysm. He never knew his biologic father. REVIEW OF SYSTEMS: He had 10 systems reviewed and he told me he has not been to a doctor in 40 years. He has very poor dentition and says he prior needs them all pulled out. ALLERGIES: None. MEDICATIONS: None. PHYSICAL EXAMINATION: VITAL SIGNS: His blood pressure is 135/67, heart rate 95, his respiratory rate is 18, his temperature is 97.9, he is 96%. He is 5 feet 9 inches and 74 kg. GENERAL: Josafat is a 62-year-old gentleman who is lying supine in his hospital bed. He is very tired, very weak. He is cachectic. He has very little muscle mass around the shoulders and his arms. His abdomen is kind of round and mild to moderately protuberant. He has a long salgado. His hair is very oily today. LUNGS: Clear to auscultation bilaterally. HEART: Regular rate and rhythm. ABDOMEN: Generally soft, but the right upper quadrant is tender and has fullness and I can feel the right lobe of his liver come and pass the costal margin is quite tender. LABORATORY DATA: His white blood cell count is 16, his hemoglobin is 11, mean cell volume was 77. Sodium is 128, his BUN is 14, creatinine 0.9, his glucose 178. Total bilirubin is 1.3, AST 62, ALT 45, his alkaline phosphatase 126, albumin is 3.1. His urinalysis showed bilirubin. RADIOGRAPHIC STUDIES: Chest x-ray was unremarkable. The CT scan showed the nodular cirrhotic liver with probable portal hypertension with mild splenomegaly. The intrahepatic and extrahepatic bile ducts were dilated with a 2.5 cm mass in his distal common bile duct concerning for cholangiocarcinoma next to that is a 4 cm mass. It is pushing on the gallbladder and the pylorus. All the lymph nodes in the area are enlarged and there was multiple mets in the right side of his liver. There was a possibility of a small lesion at L5 and there is also some ascites. ASSESSMENT AND PLAN: Josafat is a 62-year-old unfortunate gentleman who appears to have regionally advanced Electronically Signed By: RYANNE JAIMES MD 01/03/18 0649 Electronically Signed By: RYANNE JAIMES MD 01/12/18 1019 PATIENT NAME: JOSAFAT DUVAL CONSULTATION DATE OF : 55 REPORT #: [id number] PHYSICIAN: RYANNE JAIMES MD PCP: NO PRIMARY CARE PHYSICIAN REPORT IS CONFIDENTIAL AND NOT TO BE RELEASED WITHOUT AUTHORIZATION [facility] [address], [place] [address] Signed cholangiocarcinoma. He has no appetite and has not been eating well and he is quite cachectic. He is very thin, very deconditioned, very poor nutritional status. Josafat and I had a long discussion and he is extremely high risk even for simple surgery such as a gastrojejunostomy and even then I am not sure how much it will help him. He is very aware of hospice and he knows our local oncologists having been a caregiver as well. We were trying to get his new phone to work and we have not been able to access the phone number for his son Alfonso at this point. Today Wednesday and I think we will go ahead and hydrate him and see if we can get his sodium up a little bit. We will get our Instrumentation Engineer involved tomorrow along with our hospice clinical marketer and we will talk to Josafat in more detail and see what he would like us to do, very concerned to put him asleep under general anesthesia for simple gastrojejunostomy and/or biopsies here in our small hospital. He could always consider endoscopic ultrasound, but that is 3 hours away in [place]. He did not seem particularly interested in those options and we will have to discuss some more tomorrow. I have reviewed this with Josafat. He has expressed understanding and agrees above plan. Ryanne Jaimes MD ALB/MODL /[id number] cc: MD Ryanne Chow MD Robert C Quackenbush, MD Copies: SHON JONES MD,STEFANI NIEVES MD, MD ~ Electronically Signed By: RYANNE JAIMES MD 01/03/18 0649 Electronically Signed By: RYANNE JAIMES MD 01/12/18 1019 PATIENT NAME: JOSAFAT DUVAL CONSULTATION DATE OF : 55 REPORT #: [id number] PHYSICIAN: RYANNE JAIMES MD PCP: NO PRIMARY CARE PHYSICIAN REPORT IS CONFIDENTIAL AND NOT TO BE RELEASED WITHOUT AUTHORIZATION
== END 2018-01-05 15:45 | disposition hospice, home (50) | DRG 436 ==
LOC: ED 18:50 → MS 18:53
PROVIDERS: ADMIT Colon & Rectal Surgery
DX: C22.1 Intrahepatic bile duct carcinoma (principal); R64 Cachexia; K76.6 Portal hypertension; C77.2 Secondary and unspecified malignant neoplasm of intra-abdominal lymph nodes; F17.210 Nicotine dependence, cigarettes, uncomplicated; D64.9 Anemia, unspecified; K74.60 Unspecified cirrhosis of liver; R16.1 Splenomegaly, not elsewhere classified; Z68.24 Body mass index [BMI] 24.0-24.9, adult
CPT/HCPCS: 36415; 71045; 74177; 80048; 80053; 81001; 82105; 82378; 83735; 84100; 84134; 84484; 85025; 85610; 85730; 94640; 94667; 96361; 96374; 96375; 96376; 97161; 99285; 99406; G0378; G8978; G8979; J1644; J2270; J2405; J2543; J7030; J7042; J7120; Q9967

== ENCOUNTER 2018-02-09 17:26 | Observation (INO) | payer OTHER ==
[~2018-02-09] VITALS: Ht 175.3 cm; Wt 80.7 kg
[~2018-02-09 17:26] MED LIST: ALBUTEROL2.5 MG/3 M INH; HALOPERIDOL0.5 MG PO; LEVSIN0.125 MG PO; MORPHINE S100 MG/5 M PO; VENTOLIN HFA18 GM INH
[2018-02-09] MEDS ORDERED: MORPHINE SULFAT15 MG PO (17:50)
[2018-02-10] MEDS ORDERED: LORAZEPAM1 MG PO (10:46)
[2018-02-10] MEDS ORDERED: SENNA-DOCUSATE1 EAC1 PO (10:51)
== END 2018-02-10 15:38 | disposition hospice, home (50) ==
LOC: ED 17:26 → MS 17:28
PROVIDERS: ADMIT Internal Medicine
DX: C22.1 Intrahepatic bile duct carcinoma (principal); C79.9 Secondary malignant neoplasm of unspecified site; R53.1 Weakness; R64 Cachexia; K02.9 Dental caries, unspecified; F17.210 Nicotine dependence, cigarettes, uncomplicated; Z66 Do not resuscitate; Z79.891 Long term (current) use of opiate analgesic; Z79.899 Other long term (current) drug therapy; Z68.26 Body mass index [BMI] 26.0-26.9, adult
CPT/HCPCS: 71045; 80053; 85025; 96361; 96374; 96375; 96376; 99285; G0378; J1170; J2060; J2405; J7030

== ENCOUNTER 2018-04-17 14:42 | Emergency (ER) | payer OTHER ==
[~2018-04-17] VITALS: Ht 175.3 cm; Wt 74.8 kg
[~2018-04-17 14:42] MED LIST changes: +LORAZEPAM1 MG PO; +MORPHINE SULFAT15 MG PO; +SENNA-DOCUSATE1 EAC1 PO
--- OUTSIDE RECORDS SUMMARY | 2018-04-17 15:57 | XMS | Encounter Summary ---
Demographics + + + | Address | [address] | | | [place] [address] | + + + | Home Phone | | + + + | Preferred Language | Unknown | + + + | Marital Status | | + + + | Christianity Affiliation | Unknown | + + + | Race | Unknown | + + + | Ethnic Group | Unknown | + + + Author + + + | Author | [facility] | | | and [place] | + + + | Organization | [facility] | | | and [place] | + + + | Address | Unknown | + + + | Phone | Unavailable | + + + Support + + +---------+ + | Name | Relationship | Address | Phone | + + +---------+ + | Alfonso Duval | ECON | Unknown | | + + +---------+ + Care Team Providers + +------+ + | Care Shell Maker Lockstitch Name | Role | Phone | + +------+ + | Mendel Novoa MD | PCP | | + +------+ + Reason for Visit +--------+ + | Reason | Comments | +--------+ + | Other | | +--------+ + Encounter Details +--------+ + + + + | Date | Type | Department | Care Team | Description | +--------+ + + + + | 03/17/ | Telephone | [facility] | [facility], | Other | | 2018 | | [facility] | Yunier Sow MD [address] | | | | [facility] [address] [facility] | | | | | [address] | [place] [address] | | | | | [place] [address] | [phone] | | | | | [phone] | | | +--------+ + + + + Social History + +-------+ +--------+ + | Tobacco Use | Types | Packs/Day | Years | Date | | | | | Used | | + +-------+ +--------+ + | Former Smoker | | 0.5 | 35 | Quit: 12/24/2017 | + +-------+ +--------+ + + +---+---+---+ | Smokeless Tobacco: | | | | | Never Used | | | | + +---+---+---+ + + +---------+ + | Alcohol Use | Drinks/We | oz/Week | Comments | | | ek | | | + + +---------+ + | No | | | no longer drinks | + + +---------+ + + + + | Sex Assigned at | Date Recorded | | | | + + + | Not on file | | + + + as of this encounter Plan of Treatment Not on fileas of this encounter Visit Diagnoses Not on filein this encounter"
--- OUTSIDE RECORDS SUMMARY | 2018-04-17 15:57 | XMS | Clinical Summary ---
Demographics + + + | Address | [address] | | | [place] [address] | + + + | Home Phone | | + + + | Preferred Language | Unknown | + + + | Marital Status | | + + + | Christian Affiliation | Unknown | + + + | Race | Unknown | + + + | Ethnic Group | Unknown | + + + Author + + + | Author | [facility] | | | and Kristianana | + + + | Organization | [facility] | | | and Kristianana | [...] Team Providers + +------+ + | Care Latin Teacher Name | Role | Phone | + +------+ + | Mendel Novoa MD | PP | | + +------+ + Allergies No Known Allergies Current Medications + + + +---------+------+------+-------+ | Prescription | Sig. | Disp. | Refills | Star | End | Statu | | | | | | t | Date | s | | | | | | Date | | | + + + +---------+------+------+-------+ | haloperidol | Take 0.5 mg by mouth | | | | | Activ | | (HALDOL) 2 mg/mL | every 6 hours as | | | | | e | | solution | needed for Agitation | | | | | | | | or Other (nausea). | | | | | | + + + +---------+------+------+-------+ | hyoscyamine | Place 0.125 mg under | | | | | Activ | | (LEVSIN) 0.125 mg SL | the tongue every 4 | | | | | e | | tablet | hours as needed for | | | | | | | | Other (excessive | | | | | | | | secretions). | | | | | | + + + +---------+------+------+-------+ | | Take 3 mLs by | 360 mL | 5 | 06/2 | | Activ | | albuterol-ipratropiu | nebulization Every 8 | | | 5/20 | | e | | m (DUONEB) 2.5-0.5 | hours. | | | 18 | | | | mg/3 mL SOLN | | | | | | | + + + +---------+------+------+-------+ | morphine (MSIR) 15 | Take 1 tablet by | 100 | 0 | 08/2 | | Activ | | mg | mouth every 4 hours | tablet | | 0/20 | | e | | tabletIndications: | as needed for Pain. | | | 18 | | | | Cholangiocarcinoma | Take one or two tabs | | | | | | | metastatic to liver | every four hours as | | | | | | | (HCC) | needed for pain | | | | | | + + + +---------+------+------+-------+ | LORazepam (ATIVAN) | Take 1 tablet by | 40 | 5 | 08/2 | 09/ | Expir | | 1 mg tablet | mouth every 8 hours | tablet | | 0/20 | /20 | ed | | | as needed for | | | 18 | 18 | | | | Anxiety for up to 30 | | | | | | | | days. Take 1 tablet | | | | | | | | orally every 4 | | | | | | | | hours as needed for | | | | | | | | nausea, anxiety or | | | | | | | | restlessness. 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 Presentation to the [facility] Emergency Room on January 01, 2018 with three days of right | | upper quadrant pain.2. CT Abdomen/pelvis on January 01, 2018 | | demonstrated an obstructing 25 mm mass in the gall bladder, | | intra- an extra-hepatic ductal dilation, regional malignant | | lymphadenopathy and diffuse liver metastases. Last Assessment & | | Plan: Janell Duval (CELL: [phone]) returned to clinic | | on 03/14/2018 with his son, Alfonso Duval of [place] (CELL | | [phone]) for follow up of his metastatic | | cholangiocarcinoma.Review of systems is positive for anorexia, | | weight loss, abdominal pain, and dry mouth.Clinical exam is | | notable for extreme cachexia.No new laboratory data to | | review.Assessment; metastatic cholangiocarcinoma.Plan: I refilled | | Janell's lorazepam and MS IR today. We discussed hospice again in | | detail, and Janell Duval now consents to enroll in hospice | | care through [facility]. | + + Encounters +--------+ + + + + | Date | Type | Specialty | Care Team | Description | +--------+ + + + + | 03/17/ | Telephone | | Eriberto, | Other | | 2017 | | | Yunier Sow MD | | +--------+ + + + + | 03/14/ | Hospital | | Eriberto, | Cholangiocarcinoma | | 2017 | Encounter | | Ynuier Sow MD | metastatic to liver | | | | | | (HCC) | +--------+ + + + + | 02/11/ | Telephone | | Eriberto | Other | | 2017 | | | Yunier Sow MD | | +--------+ + + + + | 01/31/ | Ancillary | | Provider, | | | 2017 | Orders | | MD Anthony | | +--------+ + + + + | 01/17/ | Hospital | | Eriberto, | Malignant neoplasm | | 2017 | Encounter | | Yunier Sow MD | of intrahepatic bile | | | | | | ducts (HCC) | | | | | | (Primary Dx); | | | | | | Cholangiocarcinoma | | | | | | metastatic to liver | | | | | | (HCC); Secondary | | | | | | malignant neoplasm | | | | | | of liver (HCC) | +--------+ + + + + | 01/17/ | Orders Only | | Maryuri Robb, | | | 2017 | | | Anesthesia Technician | | +--------+ + + + + from Last 3 Months Family History + + +------+ + | Medical History | Relation | Name | Comments | + + +------+ + | Coronary artery | Brother | | | | disease | | | | + + +------+ + | Diabetes | Brother | | | + + +------+ + | Lung cancer | Maternal | | | | | Uncle | | | + + +------+ + | Lung cancer | Maternal | | | | | Uncle | | | + + +------+ + | Aneurysm | Mother | | | + + +------+ + | Emphysema | Mother | | | + + +------+ + | Asthma | Son | | | + + +------+ + + +------+ + + | Relation | Name | Status | Comments | + +------+ + + | Brother | | | | + +------+ + + | Maternal Uncle | | | | + +------+ + + | Maternal Uncle | | | | + +------+ + + | Mother | | | | + +------+ + + | Son | | | | + +------+ + + Social History + +-------+ +--------+ [...] on file | | + + + Last Filed Vital Signs + + + + | Vital Sign | Reading | Time Taken | + + + + | Blood Pressure | 142/73 | 03/14/2018 1640 PDT | + + + + | Pulse | 100 | 03/14/2018 1640 PDT | + + + + | Temperature | 35.6 C (96.1 F) | 03/14/2018 1640 PDT | + + + + | Respiratory Rate | 20 | 03/14/2018 1640 PDT | + + + + | Oxygen Saturation | 98% | 03/14/2018 1640 PDT | + + + + | Inhaled Oxygen | - | - | | Concentration | | | + + + + | Weight | 63.8 kg (140 lb 10.5 | 03/14/2018 1640 PDT | | | oz) | | + + + + | Height | - | - | + + + + | Body Mass Index | - | - | + + + + Plan of Treatment + + + + + | Health Maintenance | Due Date | Last Done | Comments | + + + + + | Hepatitis C | | | | | Screening | 5 | | | + + + + + | Vaccine: | | | | | Dtap/Tdap/Td (1 - | 4 | | | | Tdap) | | | | + + + + + | Vaccine: | | | | | Pneumococcal 19-64 | 4 | | | | Highest Risk (1 of 3 | | | | | - PCV13) | | | | + + + + + | Colorectal Cancer | | | | | Screening | 5 | | | | (Colonoscopy) | | | | + + + + + | Vaccine: Zoster (1 | | | | | of 2) | 5 | | | + + + + + | Vaccine: Influenza | | | | | (#1) | 8 | | | + + + + + Procedures + +--------+ + + + | Procedure Name | Priori | Date/Time | Associated Diagnosis | Comments | | | ty | | | | + +--------+ + + + | ALPHA FETOPROTEIN, | STAT | 01/17/2018 | Cholangiocarcinoma | Results for this | | TUMOR MARKER | | 1601 PDT | metastatic to liver | procedure are in the | | | | | (HCC) Malignant | results section. | | | | | neoplasm of | | | | | | intrahepatic bile | | | | | | ducts (HCC) | | | | | | Secondary malignant | | | | | | neoplasm of liver | | | | | | (HCC) | | + +--------+ + + + | CA 19-9, QUANT | STAT | 01/17/2018 | Cholangiocarcinoma | Results for this | | | | 1601 PDT | metastatic to liver | procedure are in the | | | | | (HCC) Malignant | results section. | | | | | neoplasm of | | | | | | intrahepatic bile | | | | | | ducts (HCC) | | | | | | Secondary malignant | | | | | | neoplasm of liver | | | | | | (HCC) | | + +--------+ + + + | CBC WITH | STAT | 01/17/2018 | Cholangiocarcinoma | Results for this | | DIFFERENTIAL | | 1601 PDT | metastatic to liver | procedure are in the | | | | | (HCC) Malignant | results section. | | | | | neoplasm of | | | | | | intrahepatic bile | | | | | | ducts (HCC) | | | | | | Secondary malignant | | | | | | neoplasm of liver | | | | | | (HCC) | | + +--------+ + + + | CEA | STAT | 01/17/2018 | Cholangiocarcinoma | Results for this | | | | 1601 PDT | metastatic to liver | procedure are in the | | | | | (HCC) Malignant | results section. | | | | | neoplasm of | | | | | | intrahepatic bile | | | | | | ducts (HCC) | | | | | | Secondary malignant | | | | | | neoplasm of liver | | | | | | (HCC) | | + +--------+ + + + | LACTATE | STAT | 01/17/2018 | Cholangiocarcinoma | Results for this | | DEHYDROGENASE | | 1601 PDT | metastatic to liver | procedure are in the | | | | | (HCC) Malignant | results section. | | | | | neoplasm of | | | | | | intrahepatic bile | | | | | | ducts (HCC) | | | | | | Secondary malignant | | | | | | neoplasm of liver | | | | | | (HCC) | | + +--------+ + + + | COMPREHENSIVE | STAT | 01/17/2018 | Cholangiocarcinoma | Results for this | | METABOLIC PANEL | | 1601 PDT | metastatic to liver | procedure are in the | | | | | (HCC) Malignant | results section. | | | | | neoplasm of | | | | | | intrahepatic bile | | | | | | ducts (HCC) | | | | | | Secondary malignant | | | | | | neoplasm of liver | | | | | | (HCC) | | + +--------+ + + + | PROTIME INR | STAT | 01/17/2018 | Cholangiocarcinoma | Results for this | | | | 1601 PDT | metastatic to liver | procedure are in the | | | | | (HCC) Malignant | results section. | | | | | neoplasm of | | | | | | intrahepatic bile | | | | | | ducts (HCC) | | | | | | Secondary malignant | | | | | | neoplasm of liver | | | | | | (HCC) | | + +--------+ + + + from Last 3 Months Results CA 19-9, Quant (01/17/2018 1601) + + + + + | Component | Value | Ref Range | Performed At | + + + + + | CA 19-9 | 14Comment: [facility] ECLIA | 0 - 35 U/mL | REFERENCE LAB | | | methodology | | [facility] | + + + + + + + | Specimen | + + | Blood | + + + + + | Narrative | Performed At | + + + | Performed at: 01 - [facility] [address], | REFERENCE LAB | | [place], [place] [id number] Clinic Physician: Olaf Zapata MD, | [facility] | | Phone: [phone] | | + + + + + + + + | Performing | Address | City/State/Zipcode | Phone Number | | Organization | | | | + + + + + | REFERENCE LAB | [address] | [place], [place] [address] | [phone] | | [facility] [place] | [address] | | | + + + + + Alpha Fetoprotein, Tumor Marker (01/17/2018 1601) + + + + + | Component | Value | Ref Range | Performed At | + + + + + | AFP Tumor Marker | 943.8 (H)Comment: [facility] | 0.0 - 8.3 ng/mL | REFERENCE LAB | | | ECLIA methodology | | [facility] | + + + + + + + | Specimen | + + | Blood | + + + + + | Narrative | Performed At | + + + | Performed at: 01 - [facility] [address], | REFERENCE LAB | | [place], [place] [id number] Clinic Physician: Olaf Zapata MD, | [facility] | | Phone: [phone] | | + + + + + + + + | Performing | Address | City/State/Zipcode | Phone Number | | Organization | | | | + + + + + | REFERENCE LAB | [address] | [place], [place] [address] | [phone] | | [facility] [place] | [address] | | | + + + + + Protime INR (01/17/2018 1601) + + + + + | Component | Value | Ref Range | Performed At | + + + + + | Protime | 14.6 (H) | 11.3 - 13.9 seconds | [facility] | | | | | [facility] | | | | | [facility] - | | | | | LABORATORY | + + + + + | INR | 1.15 (H)Comment: Usual | 0.90 - 1.10 | [facility] | | | Oral Anticoagulation | | [facility] | | | Range: 2.0 - | | CENTER - | | | 3.0High Level Oral | | LABORATORY | | | Anticoagulation Range: | | | | | 2.5 - 3.5 | | | + + + + + + + | Specimen | + + | Blood | + + + + + + + | Performing | Address | City/State/Zipcode | Phone Number | | Organization | | | | + + + + + | [facility] | [address] | [place] | [phone] | | [facility] | | [address] | | | - LABORATORY | | | | + + + + + | [facility] | [address] | [place] | | | [facility] | | [address] | | | - LABORATORY | | | | + + + + + CBC with Differential (01/17/2018 1601) + + + + + | Component | Value | Ref Range | Performed At | + + + + + | WBC | 7.8 | 4.0 - 11.0 K/uL | [facility] | | | | | [facility] | | | | | [facility] - | | | | | LABORATORY | + + + + + | RBC | 3.98 (L) | 4.30 - 5.70 M/uL | [facility] | | | | | [facility] | | | | | [facility] - | | | | | LABORATORY | + + + + + | Hgb | 9.4 (L) | 13.5 - 18.0 g/dL | [facility] | | | | | [facility] | | | | | C[facility] - | | | | | LABORATORY | + + + + + | Hct | 29.5 (L) | 40.0 - 51.0 % | [facility] | | | | | [facility] | | | | | [facility] - | | | | | LABORATORY | + + + + + | MCV | 74.1 (L) | 83.0 - 101.0 fL | [facility] | | | | | [facility] | | | | | [facility] - | | | | | LABORATORY | + + + + + | MCH | 23.5 (L) | 28.0 - 35.0 pg | [facility] | | | | | [facility] | | | | | [facility] - | | | | | LABORATORY | + + + + + | MCHC | 31.7 (L) | 32.0 - 36.0 g/dL | [facility] | | | | | [facility] | | | | | C[facility] - | | | | | LABORATORY | + + + + + | RDW-CV | 19.1 (H) | <15.0 % | [facility] | | | | | [facility] | | | | | C[facility] - | | | | | LABORATORY | + + + + + | Platelet Count | 294 | 140 - 440 K/uL | [facility] | | | | | [facility] | | | | | [facility] - | | | | | LABORATORY | + + + + + | MPV | 7.9 | fL | [facility] | | | | | [facility] | | | | | [facility] - | | | | | LABORATORY | + + + + + | % Neutrophils | 70.7 | 45.0 - 82.0 % | [facility] | | | | | [facility] | | | | | [facility] - | | | | | LABORATORY | + + + + + | % Lymphocytes | 12.0 (L) | 20.0 - 45.0 % | [facility] | | | | | [facility] | | | | | C[facility] - | | | | | LABORATORY | + + + + + | % Monocytes | 14.2 (H) | 4.0 - 12.0 % | [facility] | | | | | [facility] | | | | | C[facility] - | | | | | LABORATORY | + + + + + | % Eosinophils | 2.3 | 0.0 - 5.0 % | [facility] | | | | | [facility] | | | | | [facility] - | | | | | LABORATORY | + + + + + | % Basophils | 0.8 | 0.0 - 1.0 % | [facility] | | | | | [facility] | | | | | [facility] - | | | | | LABORATORY | + + + + + | Absolute Neutrophils | 5.50 | 1.80 - 8.50 K/uL | [facility] | | | | | [facility] | | | | | [facility] - | | | | | LABORATORY | + + + + + | Absolute Lymphocytes | 0.90 | 0.60 - 3.20 K/uL | [facility] | | | | | [facility] | | | | | [facility] - | | | | | LABORATORY | + + + + + | Absolute Monocytes | 1.10 (H) | 0.00 - 1.00 K/uL | [facility] | | | | | [facility] | | | | | [facility] - | | | | | LABORATORY | + + + + + | Absolute Eosinophils | 0.20 | 0.00 - 0.40 K/uL | [facility] | | | | | [facility] | | | | | [facility] - | | | | | LABORATORY | + + + + + | Absolute Basophils | 0.10 | 0.00 - 0.10 K/uL | [facility] | | | | | [facility] | | | | | [facility] - | | | | | LABORATORY | + + + + + + + | Specimen | + + | Blood | + + + + + + + | Performing | Address | City/State/Zipcode | Phone Number | | Organization | | | | + + + + + | [facility] | [address] | [place], [place] | [phone] | | [facility] | | [address] | | | - LABORATORY | | | | + + + + + | [facility] | [address] | [place] | | | [facility] | | [address] | | | - LABORATORY | | | | + + + + + Lactate Dehydrogenase (01/17/2018 160) + +---------+ + + | Component | Value | Ref Range | Performed At | + +---------+ + + | LDH TOTAL | 240 (H) | 91 - 180 U/L | [facility] | | | | | [facility] | | | | | CENTER - | | | | | LABORATORY | + +---------+ + + + + | Specimen | + + | Blood | + + + + + + + | Performing | Address | City/State/Zipcode | Phone Number | | Organization | | | | + + + + + | [facility] | [address] | [place] | [phone] | | [facility] | | [address] | | | - LABORATORY | | | | + + + + + | [facility] | [address] | [place] | | | [facility] | | [address] | | | - LABORATORY | | | | + + + + + CEA (01/17/2018 160) + +-------+ + + | Component | Value | Ref Range | Performed At | + +-------+ + + | CEA | 1.4 | 0.0 - 10.0 ng/mL | [facility] | | | | | [facility] | | | | | CENTER - | | | | | LABORATORY | + +-------+ + + + + | Specimen | + + | Blood | + + + + + + + | Performing | Address | City/State/Zipcode | Phone Number | | Organization | | | | + + + + + | [facility] | [address] | [place] | [phone] | | [facility] | | [address] | | | - LABORATORY | | | | + + + + + | [facility] | [address] | [place] | | | [facility] | | [address] | | | - LABORATORY | | | | + + + + + Comprehensive Metabolic Panel (01/17/2018 1601) + + + + + | Component | Value | Ref Range | Performed At | + + + + + | NA | 132 (L) | 136 - 149 mmol/L | [facility] | | | | | [facility] | | | | | [facility] - | | | | | LABORATORY | + + + + + | K | 4.1 | 3.5 - 5.1 mmol/L | [facility] | | | | | [facility] | | | | | C[facility] - | | | | | LABORATORY | + + + + + | CL | 101 | 98 - 109 mmol/L | [facility] | | | | | [facility] | | | | | C[facility] - | | | | | LABORATORY | + + + + + | CO2 | 25 | 24 - 31 mmol/L | [facility] | | | | | [facility] | | | | | C[facility] - | | | | | LABORATORY | + + + + + | ANION GAP | 6 | 3 - 16 mmol/L | [facility] | | | | | [facility] | | | | | CENTER - | | | | | LABORATORY | + + + + + | GLUCOSE | 182 (H) | 70 - 109 mg/dL | [facility] | | | | | [facility] | | | | | CENTER - | | | | | LABORATORY | + + + + + | BUN | 8 | 7 - 18 mg/dL | [facility] | | | | | [facility] | | | | | [facility] - | | | | | LABORATORY | + + + + + | Creatinine, | 0.66 | 0.60 - 1.30 mg/dL | [facility] | | Serum/Plasma | | | [facility] | | | | | CENTER - | | | | | LABORATORY | + + + + + | eGFR if not | >60Comment: GLOMERULAR | >=60 mL/min/1.73m2 | [facility]. | | [employer] [place] [employer] | FILTRATION | | [facility] | | | RATE,ESTIMATED mL/min | | CENTER - | | | /1.38e9Maeh than 60 | | LABORATORY | | | Chronic kidney | | | | | disease,if found over a | | | | | 3-month period.Less than | | | | | 15 Kidney | | | | | failureFor | | | | | Americans,multiply the | | | | | calculated GFR by 1.21. | | | | | | | | + + + + + | CALCIUM | 8.7 | 8.3 - 10.5 mg/dL | [facility] | | | | | [facility] | | | | | CENTER - | | | | | LABORATORY | + + + + + | ALBUMIN | 2.3 (L) | 3.2 - 5.0 g/dL | [facility] | | | | | [facility] | | | | | CENTER - | | | | | LABORATORY | + + + + + | Bilirubin Total | 0.8 | 0.1 - 1.5 mg/dL | [facility] | | | | | [facility] | | | | | CENTER - | | | | | LABORATORY | + + + + + | Total protein | 7.8 | 6.0 - 7.8 g/dL | [facility] | | | | | [facility] | | | | | CENTER - | | | | | LABORATORY | + + + + + | AST | 133 (H) | 10 - 42 U/L | [facility] | | | | | [facility] | | | | | CENTER - | | | | | LABORATORY | + + + + + | ALT | 71 (H) | 6 - 45 U/L | [facility] | | | | | [facility] | | | | | CENTER - | | | | | LABORATORY | + + + + + | ALK PHOS | 197 (H) | 40 - 110 U/L | [facility] | | | | | [facility] | | | | | CENTER - | | | | | LABORATORY | + + + + + | GLOBULIN | 5.5 (H) | 2.1 - 3.8 g/dL | [facility] | | | | | [facility] | | | | | C[facility] - | | | | | LABORATORY | + + + + + | Albumin/Globulin | 0.4 (L) | 0.8 - 2.0 | [facility] | | ratio | | | [facility] | | | | | CENTER - | | | | | LABORATORY | + + + + + | BUN/CREA | 12.1 | | [facility] | | | | | [facility] | | | | | CENTER - | | | | | LABORATORY | + + + + + + + | Specimen | + + | Blood | + + + + + + + | Performing | Address | City/State/Zipcode | Phone Number | | Organization | | | | + + + + + | [facility] | [address] | [place] | [phone] | | [facility] | | [address] | | | - LABORATORY | | | | + + + + + | [facility] | [address] | [place] | | | [facility] | | [address] | | | - LABORATORY | | | | + + + + + from Last 3 Months Insurance +---------+--------+ +--------+-------+---------+ | Payer | Benefi | Subscriber | Type | Phone | Address | | | t Plan | ID | | | | | | / | | | | | | | Group | | | | | +---------+--------+ +--------+-------+---------+ | HOSPICE | HOSPIC | [id number] | Indemn | | | | | E | | ity | | | | | OTHER | | | | | +---------+--------+ +--------+-------+---------+ + +--------+ +--------+ + + | Guarantor Name | Accoun | Relation to | Date | Phone | Billing Address | | | t Type | Patient | of | | | | | | | | | | + +--------+ +--------+ + + | JANELL DUVAL | Specia | Self [birth year] | Home: | [address] | | | l | | [phone] | [phone] | [place] [address] | | | Servic | | | [address] | | | | es | | | | | + +--------+ +--------+ + + | JANELL DUVAL | Person | Self | [birth year] | Home: | [address] | | | al/Fam | | 1954 | [phone] | [place] [address] | | | bj | | | [address] | | + +--------+ +--------+ + + | JANELL DUVAL | Specia | Self | [birth year] | Home: | [address] | | [address] | | [phone] | [phone] | [place] [address] | | | [place] | | | [address] | | | | es | | | | | + +--------+ +--------+ + +"
--- OUTSIDE RECORDS SUMMARY | 2018-04-17 15:59 | XMS | Encounter Summary ---
Demographics + + + | Address | [address] | | | [place] [address] | + + + | Home Phone | | + + + | Preferred Language | Unknown | + + + | Marital Status | | + + + | Judaism Affiliation | Unknown | + + + | Race | Unknown | + + + | Ethnic Group | Unknown | + + + Author + + + | Author | [facility] | | | and Kristianana | + + + | Organization | [facility] | | | and Kristianana | [...] Team Providers + +------+ + | Care Acoustical Carpenter Name | Role | Phone | + +------+ + | Mendel Novoa MD | PCP | | + +------+ + Reason for Referral Hospice (Routine) +--------+ + + + + + | Status | Reason | Specialty | Diagnoses / | Referred By | Referred To | | | | | Procedures | Contact | Contact | +--------+ + + + + + | Closed | Specialty | Hospice | Diagnoses | | | | | Services | Services | | [facility], | | | | Required | | Cholangiocar | Yunier Sow, | | | | | | cinoma | [address] | | | | | | metastatic | [address] | | | | | | to liver | [place], | | | | | | (HCC) | [place] [address] | | | | | | | Phone: | | | | | | | [phone] | | | | | | | Fax: | | | | | | | [phone] | | +--------+ + + + + + Reason for Visit + + + | Reason | Comments | + + + | Follow-up | | + + + Evaluate & Treat (Routine) + +--------+ + + + + | Status | Reason | Specialty | Diagnoses / | Referred By | Referred To | | | | | Procedures | Contact | Contact | + +--------+ + + + + | Authorized | | Medical | Diagnoses | [facility] | | | | | Oncology / | Malignant | Medical | [facility], | | | | Oncology | neoplasm of | Oncology | Yunier Sow MD | | | | | intrahepatic | Clinic [address] | [address] | | | | | bile ducts | [address] | [address] [place] | | | | | (HCC) | [place], | [place], [place] | | | | | Malignant | [place] | [address] Phone: | | | | | neoplasm of | [address] | [phone] | | | | | intrahepatic | Phone: | Fax: | | | | | bile ducts | [phone] | [phone] | | | | | (HCC) | Fax: | | | | | | Procedures | [phone] | | | | | | [address] | | | + +--------+ + + + + Encounter Details +--------+ + + + + | Date | Type | Department | Care Team | Description | +--------+ + + + + | 03/14/ | Hospital | [facility] | [facility], | Cholangiocarcinoma | | 2018 | Encounter | [facility] | Yunier Sow MD [address] | metastatic to liver | | | | [facility] CL[facility] [address] | [address] [place] | (HCC) | | | | [address] [place] | [place] [address] | | | | | [place] [address] | [phone] | | | | | [phone] | | | +--------+ + + + [...] + + + as of this encounter Last Filed Vital Signs + + + + | Vital Sign | Reading | Time Taken | + + + + | Blood Pressure | 142/73 | 03/14/2018 1640 PDT | + + + + | Pulse | 100 | 03/14/20181639 PDT | + + + + | Temperature | 35.6 C (96.1 F) | 03/14/20181639 PDT | + + + + | Respiratory Rate | 20 | 03/14/20181639 PDT | + + + + | Oxygen Saturation | 98% | 03/14/20181639 PDT | + + + + | Inhaled Oxygen | - | - | | Concentration | | | + + + + | Weight | 63.8 kg (140 lb 10.5 | 03/14/20181639 PDT | | | oz) | | + + + + | Height | - | - | + + + + | Body Mass Index | - | - | + + + + in this encounter Medications at Time of Discharge + + + +---------+ + + | Medication | Sig. | Disp. | Refills | Start | End Date | | | | | | Date | | + + + +---------+ + + | | Take 3 mLs by | 360 mL | 5 | 06/25/20 | | | albuterol-ipratropiu | nebulization Every 8 | | | 18 | | | m (DUONEB) 2.5-0.5 | hours. | | | | | | mg/3 mL SOLN | | | | | | + + + +---------+ + + | haloperidol | Take 0.5 mg by mouth | | | | | | (HALDOL) 2 mg/mL | every 6 hours as | | | | | | solution | needed for Agitation | | | | | | | or Other (nausea). | | | | | + + + +---------+ + + | hyoscyamine | Place 0.125 mg under | | | | | | (LEVSIN) 0.125 mg SL | the tongue every 4 | | | | | | tablet | hours as needed for | | | | | | | Other (excessive | | | | | | | secretions). | | | | | + + + +---------+ + + | morphine (MSIR) 15 | Take 1 tablet by | 100 | 0 | 08/20/20 | | | mg | mouth every 4 hours | tablet | | 18 | | | tabletIndications: | as needed for Pain. | | | | | | Cholangiocarcinoma | Take one or two tabs | | | | | | metastatic to liver | every four hours as | | | | | | (HCC) | needed for pain | | | | | + + + +---------+ + + | LORazepam (ATIVAN) | Take 1 tablet by | 40 | 5 | 03/14/20 | | | 1 mg tablet | mouth every 8 hours | tablet | | 18 | 8 | | | as needed for | | | | | | | Anxiety for up [...] | restlessness. | | | | | + + + +---------+ + + as of this encounter Progress Notes Yunier Wei MD - 03/14/2018 1645 PDTFormatting of this note may be different fro m the original. Hematology/Oncology Progress Note [facility] [place] Pt. Name/Age/: Janell Duval 63 y.o. 1955 Med. Record Number: [id number] Date of admission: 03/14/2018 The patient's primary care provider is Mendel Novoa MD. Identifying Statement: Janell Duval is a 63 y.o. 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 The patient chart and medications were reviewed in detail and the patient was seen and exam ined. 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 1. Presentation to the [facility] Emergency Room on January 01, 2018 with three days of right upper quadrant pain. 2. CT Abdomen/pelvis on January 01, 2018 demonstrated an obstructing 25 mm mass in the gall wilfrido dder, intra- an extra-hepatic ductal dilation, regional malignant lymphadenopathy and diffus e liver metastases. Current Assessment & Plan Janell Duval (CELL: [phone]) returned to clinic on 03/14/2018 with his son, Jose Juan Duval of [place] (CELL [phone]) for follow up of his metastatic cholangiocarcin joey. Review of systems is positive for anorexia, weight loss, abdominal pain, and dry mouth. Clinical exam is notable for extreme cachexia. No new laboratory data to review. Assessment; metastatic cholangiocarcinoma. Plan: I refilled Janell's lorazepam and MS IR today. We discussed hospice again in detail, a nd Janell Duval now consents to enroll in hospice care through [facility]. Review of Systems: Constitutional: Energy remains low. Reports poor appetite. Weight decreased today to 63.8 k g from 74.4 kg on 01/17/18. Nausea with intermittent emesis is almost daily, taking mainly wa ter and ensure. Night sweats reported. Denies high fevers or shaking chills. Ear, Nose, Mouth, Throat: Reports some dysphagia, as well as oral sores. Tinnitus reported. Denies odynophagia. Cardiovascular: Reports dyspnea on exertion, orthopnea and chest/ back pain. Denies shortne ss of breath at rest and palpitations. Respiratory: Reports cough with small amount of lam colored sputum. Denies hemoptysis. Gastrointestinal: Reports ongoing constipation. Denies abdominal pain, diarrhea, melena, or bright red blood per rectum. Genitourinary: Reports dark urine with some dysuria. Denies hematuria. Musculoskeletal: Reports ongoing joint pain, "My joints hurt all over." Denies tenderness. Neurologic: Reports intermittent headaches. Reports neuropathy in right hand: tingling and numbness. Denies visual changes. Endocrine: Lower legs and feet swelling is slightly increased. Denies heat/cold intolerance . Hematologic: Denies spontaneous bruising or bleeding. Integumentary: Denies rash, wounds or other skin concerns. Pain:Chest and upper back is as high as 9/10 and as low as 7/10 after morphine use. Goal < 4/10. ROS otherwise negative. Note: Here for follow up today. My chart: declined. . Scheduled Medications: Current Outpatient Prescriptions Medication Sig Dispense Refill albuterol-ipratropium (DUONEB) 2.5-0.5 mg/3 mL SOLN Take 3 mLs by nebulization Every 8 hours. 360 mL 5 haloperidol (HALDOL) 2 mg/mL solution Take 0.5 mg by mouth every 6 hours as needed for Agitation or Other (nausea). hyoscyamine (LEVSIN) 0.[address] 0.125 mg under the tongue every 4 hours a s needed for Other (excessive secretions). LORazepam (ATIVAN) 1 mg tablet Take 1 tablet by mouth every 8 hours as needed for Anxie ty for up to 30 days. Take 1 tablet orally every 4 hours as needed for nausea, anxiety or re stlessness. 40 tablet 5 morphine (MSIR) 15 mg tablet Take 1 tablet by mouth every 4 hours as needed for Pain. T suzi one or two tabs every four hours as needed for pain 100 tablet 0 No current facility-administered medications for this encounter. Allergies: Allergy: No Known Allergies Past Medical and Surgical History, Social History and Problems: No past medical history on file. Past Surgical History: Procedure Laterality Date APPENDECTOMY Social History Social History Marital status: Spouse name: N/A Number of children: N/A Years of education: N/A Occupational History Not on file. Social History Main Topics Smoking status: Former Smoker Packs/day: 0.50 Years: 35.00 Quit date: 12/24/2017 Smokeless tobacco: Never Used Alcohol use No Comment: no longer drinks Drug use: Yes Types: Marijuana Comment: uses for pain control Sexual activity: Not Currently Other Topics Concern Not on file Social History Narrative No narrative on file Patient Active Problem List Diagnosis Cholangiocarcinoma metastatic to liver Family History Problem Relation Age of Onset Emphysema Mother Aneurysm Mother Coronary artery disease Brother Diabetes Brother Lung cancer Maternal Uncle Lung cancer Maternal Uncle Asthma Son Objectives: Temp: 35.6 C (96.1 F) BP: 142/73 Pulse: 100 Resp: 20 SpO2: 98 % on Min/Max Temp past 24 hours:No Data Recorded No intake or output data in the 24 hours ending 03/17/18 1937 Wt. Admission: Weight: 63.8 kg (140 lb 10.5 oz) Wt. Current: Weight: 63.8 kg (140 lb 10 .5 oz) Wt Readings from Last 3 Encounters: 03/14/18 63.8 kg (140 lb 10.5 oz) 01/17/18 74.4 kg (164 lb 0.4 oz) Physical Exam: General: The patient is alert and oriented. In mild distress due to pain. Eyes: Conjunctiva clear. Sclera anicteric. ENMT: Oropharynx fee of lesions, mucous membranes very dry. Very poor dentition, with few r emaining teeth. Cardiovascular: Regular rate and rhythm, no rubs, gallops, or murmurs. Lungs: Clear to auscultation and percussion. Abdomen: Distended but soft, nontender, no spenomegaly. Palpable hepatomegaly 14 cm below the right costal margin. No other palpable masses. Bowel sounds present. Extremities: Nontender, no erythema, no edema. Skin: No rashes, bruising, or petechiae. Lymph: No palpable nodes in the neck, supraclavicular fossa, axilla or groin. Neurological: Cranial nerves are intact. Normal sensory and motor function, No focal defi cits noted, remains ambulatory. Muscular/Skeletal: No acute bony tenderness. Severe diffuse sarcopenia. Psychiatric: Normal mood and affect. ECOG Performance Status [] 0 [] 1 [] 2 [x]3 [] 4 ECOG PERFORMANCE STATUS* Grade ECOG Karnofsky 0 Fully active, able to carry on all pre-disease performance without restriction. 90 - 100 1 Restricted in physically strenuous activity but ambulatory and able to carry out work of a light or sedentary nature, e.g., light house work, office work 70 - 80 2 Ambulatory and capable of all selfcare but unable to carry out any work activ ities. Up and about more than 50% of waking hours 50 - 60 3 Capable of only limited selfcare, confined to bed or chair more than 50% of w aking hours 30 - 40 4 Completely disabled. Cannot carry on any selfcare. Totally confined to bed or chair 10 - 20 * As published in Am. J. Clin. Oncol.: Cata Berry., Libby RLida., Rajni Bearden., Vicky Sharpe, Kendra Vora., David EAnitaT., Wyatt, P .P.: Toxicity And Response Criteria Of The Eastern Cooperative Oncology Group. Am J Clin Onc ol 5:649-655, 1982. The ECOG Performance Status is in the public domain therefore available for public use. To duplicate the scale, please cite the reference above and credit the Eastern Cooperative Onco logy Group, Yunier Meyers M.D., Group Chair Diagnostic studies: Available data and images were reviewed personally. See reports. Significant results and findings are addressed here or in the Assessment and Plan. Results for JANELL DUVAL ( ) as of 01/18/2018 18:38 Ref. Range 01/17/2018 16:01 WBC Latest Ref Range: 4.0 - 11.0 K/uL 7.8 RBC COUNT Latest Ref Range: 4.30 - 5.70 M/uL 3.98 (L) Hgb Latest Ref Range: 13.5 - 18.0 g/dL 9.4 (L) Hct, Final Latest Ref Range: 40.0 - 51.0 % 29.5 (L) MCV Latest Ref Range: 83.0 - 101.0 fL 74.1 (L) MCH Latest Ref Range: 28.0 - 35.0 pg 23.5 (L) MCHC Latest Ref Range: 32.0 - 36.0 g/dL 31.7 (L) RDW-CV Latest Ref Range: <15.0 % 19.1 (H) Platelet Count Latest Ref Range: 140 - 440 K/uL 294 MPV Latest Units: fL 7.9 Absolute Neutrophils Latest Ref Range: 1.80 - 8.50 K/uL 5.50 Absolute Lymphocytes Latest Ref Range: 0.60 - 3.20 K/uL 0.90 Absolute Monocytes Latest Ref Range: 0.00 - 1.00 K/uL 1.10 (H) Absolute Eosinophils Latest Ref Range: 0.00 - 0.40 K/uL 0.20 Absolute Basophils Latest Ref Range: 0.00 - 0.10 K/uL 0.10 % Neutrophils Latest Ref Range: 45.0 - 82.0 % 70.7 % Lymphocytes Latest Ref Range: 20.0 - 45.0 % 12.0 (L) % Monocytes Latest Ref Range: 4.0 - 12.0 % 14.2 (H) % Eosinophils Latest Ref Range: 0.0 - 5.0 % 2.3 % Basophils Latest Ref Range: 0.0 - 1.0 % 0.8 Protime Latest Ref Range: 11.3 - 13.9 seconds 14.6 (H) INR Latest Ref Range: 0.90 - 1.10 1.15 (H) NA Latest Ref Range: 136 - 149 mmol/L 132 (L) K Latest Ref Range: 3.5 - 5.1 mmol/L 4.1 Chloride Latest Ref Range: 98 - 109 mmol/L 101 Carbon dioxide Latest Ref Range: 24 - 31 mmol/L 25 ANION GAP Latest Ref Range: 3 - 16 mmol/L 6 GLUCOSE Latest Ref Range: 70 - 109 mg/dL 182 (H) BUN Latest Ref Range: 7 - 18 mg/dL 8 Creatinine Latest Ref Range: 0.60 - 1.30 mg/dL 0.66 BUN/CREA Unknown 12.1 ALBUMIN Latest Ref Range: 3.2 - 5.0 g/dL 2.3 (L) Albumin/Globulin ratio Latest Ref Range: 0.8 - 2.0 0.4 (L) Total protein Latest Ref Range: 6.0 - 7.8 g/dL 7.8 EGFR IF NOT Latest Ref Range: >=60 mL/min/1.73m2 >60 Calcium Latest Ref Range: 8.3 - 10.5 mg/dL 8.7 ALK PHOS Latest Ref Range: 40 - 110 U/L 197 (H) ALT (SGPT) (REF) Latest Ref Range: 6 - 45 U/L 71 (H) AST (SGOT) (REF) Latest Ref Range: 10 - 42 U/L 133 (H) LDH TOTAL Latest Ref Range: 91 - 180 U/L 240 (H) Bilirubin Total (Calculated) Latest Ref Range: 0.1 - 1.5 mg/dL 0.8 GLOBULIN Latest Ref Range: 2.1 - 3.8 g/dL 5.5 (H) CEA Latest Ref Range: 0.0 - 10.0 ng/mL 1.4 Pharmacovigilance: Palliative Care: Patient's Medications New Prescriptions No medications on file Modified Medications Modified Medication Previous Medication LORAZEPAM (ATIVAN) 1 MG TABLET LORazepam (ATIVAN) 1 mg tablet Take 1 tablet by mouth every 8 hours as needed for Anxiety for up to 30 days. Take 1 ta blet orally every 4 hours as needed for nausea, anxiety or restlessness. Take 1 tablet by mouth every 8 hours as needed for Anxiety. Take 1 tablet orally every 4 hours as needed for nausea, anxiety or restlessness. MORPHINE (MSIR) 15 MG TABLET morphine (MSIR) 15 mg tablet Take 1 tablet by mouth every 4 hours as needed for Pain. Take one or two tabs every fou r hours as needed for pain Take 1 tablet by mouth every 4 hours as needed for Pain. Take one or two tabs every four hours as needed for pain Discontinued Medications MORPHINE SULFATE, PF, IJ Take 5 mg by mouth Every 30 minutes as needed for Pain (or SOB ). Procedure: Referral to [facility]. Yunier Wei MD Portions of this chart may have been created with [employer] voice recognition software. Occasi onal wrong-word or sound-alike substitutions may have occurred due to the inherent vazquez itations of voice recognition software. Please read the chart carefully and recognize, using context, where these substitutions have occurred.in this encounter Plan of Treatment + +--------+ + + | Name | Priori | Associated Diagnoses | Order Schedule | | | ty | | | + +--------+ + + | Hospice, External - AMB Referral | Routin | Cholangiocarcinoma | Ordered: 03/14/2018 | | | e | metastatic to liver | | | | | (HCC) | | + +--------+ + + as of this encounter Visit Diagnoses + + | Diagnosis | + + | Cholangiocarcinoma metastatic to liver (HCC) | + +
--- OUTSIDE RECORDS SUMMARY | 2018-04-17 15:59 | XMS | Encounter Summary ---
Demographics + + + | Address | [address] | | | [place] [address] | + + + | Home Phone | | + + + | Preferred Language | Unknown | + + + | Marital Status | | + + + | Denominational Affiliation | Unknown | + + + | Race | Unknown | + + + | Ethnic Group | Unknown | + + + Author + + + | Author | [facility] | | | and Kristianana | + + + | Organization | [facility] | | | and Kristianana [...] Team Providers + +------+ + | Care Appeals Specialist Name | Role | Phone | + [...] + + | 02/11/ | Telephone | [facility] | [facility], | Other | | 2018 | | [facility] | Yunier Sow MD [address] | | | | | [facility] CL[facility] [address] | [address] [place] | | | | | [address] [place] | [place] [address] | | | | | [place] [address] | [phone] | | | | | [phone] | | | +--------+ + + + [...] on fileas of this encounter Visit Diagnoses + + | Diagnosis | + + | Cholangiocarcinoma metastatic to liver (HCC) - Primary | + +"
--- OUTSIDE RECORDS SUMMARY | 2018-04-17 16:00 | XMS | Encounter Summary ---
Demographics + + + | Address | [address] | | | [place] [address] | + + + | Home Phone | | + + + | Preferred Language | Unknown | + + + | Marital Status | | + + + | Restorationist Affiliation | Unknown | + + + | Race | Unknown | + + + | Ethnic Group | Unknown | + + + Author + + + | Author | [facility] | | | and Kristianana | + + + | Organization | [facility] | | | and Kristianana [...] Team Providers + +------+ + | Care Ammonia Distiller Name | Role | Phone | + +------+ + | Mendel Novoa MD | PCP | | + +------+ + Encounter Details +--------+ + + + + | Date | Type | Department | Care Team | Description | +--------+ + + + + | 01/31/ | Ancillary | [facility] | Provider, | | | 2018 | Orders | [facility] | MD [address] | | | | IMAGING | [address] | | | | | [phone] | [place] [address] | | +--------+ + + + + [...] Treatment Not on fileas of this encounter Results CT Abdomen Pelvis w Contrast (01/01/20182049) + + + | Narrative | Performed At | + + + | External films for comparison only | [facility] | | | | | No results will be in the chart. | | + + + + +---------+ + + | Performing | Address | City/State/Zipcode | Phone Number | | Organization | | | | + +---------+ + + | [facility] | | | | + +---------+ + + XR Chest 1 Vw (01/01/20181909) + + + | Narrative | Performed At | + + + | External films for comparison only | [facility] | | | | | No results will be in the chart. | | + + + + +---------+ + + | Performing | Address | City/State/Zipcode | Phone Number | | Organization | | | | + +---------+ + + | [facility] | | | | + +---------+ + + in this encounter Visit Diagnoses Not on filein this encounter"
--- OUTSIDE RECORDS SUMMARY | 2018-04-17 16:00 | XMS | Encounter Summary ---
Demographics + + + | Address | [address] | | | [place] [address] | + + + | Home Phone | | + + + | Preferred Language | Unknown | + + + | Marital Status | | + + + | Confucianism Affiliation | Unknown | + + + | Race | Unknown | + + + | Ethnic Group | Unknown | + + + Author + + + | Author | [facility] | | | and Krisitanana | + + + | Organization | [facility] | | | and Kristianana [...] Team Providers + +------+ + | Care Social Worker Delinquency Prevention Name | Role | Phone | + +------+ + | Mendel Novoa MD | PCP | | + +------+ + Encounter Details +--------+ + + + + | Date | Type | Department | Care Team | Description | +--------+ + + + + | 01/17/ | Orders Only | [facility] | Maryuri Robb, | | | 2017 | | [facility] | Laboratory Sampler | | | | | [facility]Y CLINIC [address] | | | | | | [address] | | | | | | [place] [address] | | | | | | [phone] | | | +--------+ + + + [...]
--- OUTSIDE RECORDS SUMMARY | 2018-04-17 16:00 | XMS | Encounter Summary ---
Demographics + + + | Address | [address] | | | [place] [address] | + + + | Home Phone | | + + + | Preferred Language | Unknown | + + + | Marital Status | | + + + | Anabaptism Affiliation | Unknown | + + + | Race | Unknown | + + + | Ethnic Group | Unknown | + + + Author + + + | Author | [facility] | | | and Kristianana | + + + | Organization | [facility] | | | and Kristianana [...] Team Providers + +------+ + | Care Straddle Truck Operator Name | Role | Phone | + +------+ + | Mendel Novoa MD | PCP | | + +------+ + Reason for Visit + + + | Reason | Comments | + + + | Advice Only | | + + + Evaluate & Treat (Routine) +--------+--------+ + + + + | Status | Reason | Specialty | Diagnoses / | Referred By | Referred To | | | | | Procedures | Contact | Contact | +--------+--------+ + + + + | Closed | | Medical | Diagnoses | Bright, | | | | | Oncology / | | Mendel Oliveros, | Eriberto, | | | | Oncology | Consult/poss | [address] | Yunier Sow MD | | | | | ible | Graham Avfredo | [address] | | | | | Cholangiocar | [place], | [place] | | | | | cinoma/Bright | [place] | [place], [place] | | | | | [place] | [address] | [address] Phone: | | | | | Q to see | Phone: | [phone] | | | | | w/o | [phone] | Fax: | | | | | pathology | Fax: | [phone] | | | | | labs/ arm | [phone] | | | | | | CBC w/DIFF, | | | | | | | CMP, LDH, | | | | | | | PT/INR, AFP | | | | | | | TUMOR | | | | | | | MARKER, CEA, | | | | | | | CA19-9 | | | | | | | Procedures | | | | | | | [place] OFFICE | | | | | | | OUTPATIENT | | | | | | | NEW 60 | | | | | | | MINUTES [facility] | | | | | | | MED ONC NEW | | | | | | | PATIENT | | | +--------+--------+ + + + + Encounter Details +--------+ + + + + | Date | Type | Department | Care Team | Description | +--------+ + + + + | 01/17/ | Hospital | [facility] | Eriberto, | Malignant neoplasm | | 2018 | Encounter | [facility] | Yunier Sow MD [address] | of intrahepatic bile | | | | [facility]COLOGY CLINIC [address] [place] | ducts (HCC) | | | | [address] [place] | [place] [address] | (Primary Dx); | | | | [place] [address] | [phone] | Cholangiocarcinoma | | | | [phone] | | metastatic to liver | | | | | | (HCC); Secondary | | | | | | malignant neoplasm | | | | | | of liver (HCC) | +--------+ + + + + Social [...] + + + | Blood Pressure | 144/71 | 01/17/20181435 PDT | + + + + | Pulse | 95 | 01/17/20181435 PDT | + + + + | Temperature | 36.2 C (97.1 F) | 01/17/20181435 PDT | + + + + | Respiratory Rate | 16 | 01/17/20181435 PDT | + + + + | Oxygen Saturation | 98% | 01/17/20181435 PDT | + + + + | Inhaled Oxygen | - | - | | Concentration | | | + + + + | Weight | 74.4 kg (164 lb 0.4 | 01/17/20181435 PDT | | | oz) | | [...] by | 360 mL | 5 | // | | | albuterol-ipratropiu | nebulization Every [...] + + + +---------+ + + | docusate-senna | Take 1 tablet by | 60 | 5 | 01/18/20 | | | (SENOKOT S) 50-8.6 | mouth 2 times daily | tablet | | 18 | 8 | | mg per tablet | for 30 days. | | | | | + + + +---------+ + + | LORazepam (ATIVAN) | Take 1 tablet by | 30 | 5 | 01/18/20 | | | 1 mg tablet | mouth every 8 hours | tablet | | 18 | 8 | | | as needed for | | | | | | | Anxiety. Take 1 | | | | | | | tablet orally every | | | | | | | 4 hours as needed | | | | | | | for nausea, anxiety | | | | | | | or restlessness. | | | | | + + + +---------+ + + | morphine (MSIR) 15 | Take 1 tablet by | 100 | 0 | 01/18/20 | | | mg tablet | mouth every 4 hours | tablet | | 18 | 8 | | | as needed for Pain. | | | | | | | Take one or two tabs | | | | | | | every four hours as | | | | | | | needed for pain | | | | | + + + +---------+ + + | MORPHINE SULFATE, | Take 5 mg by mouth | | | | | | PF, IJ | Every 30 minutes as | | | | 8 | | | needed for Pain (or | | | | | | | SOB). | | | | | + + + +---------+ + + as of this encounter Plan of Treatment Not on fileas of this encounter Procedures + +--------+ + + + | [...] | + +--------+ + + + | IMAGING REPORT - | | 01/01/2018 | | Results for this | | EXTERNAL SCAN | | 0000 PDT | | procedure are in the | | | | | | results section. | + +--------+ + + + in this encounter Results CEA (01/17/20181600) + +-------+ + + | Component | Value | Ref Range | Performed At | + +-------+ + + | CEA | 1.4 | 0.0 - 10.0 ng/mL | [facility] | | | | | [facility] | | | | | CENTER [...] [address] | [place] | [phone] | | [facility] | | [address] | | | - LABORATORY | | | | + + + + + | [facility] | [address] | [place] | | | [facility] | | [address] | | | - LABORATORY | | | | + + + + + Protime INR (01/17/2018 1601) + + + + + | Component | Value | Ref Range | Performed At | + + + + + | Protime | 14.6 (H) | 11.3 - 13.9 seconds | [facility] | | | | [facility] | | | | | CENTER - | | | | | LABORATORY | + + + + + | INR | 1.15 (H)Comment: Usual | 0.90 - 1.10 | [facility] | | | Oral Anticoagulation | | [facility] | | | Range: 2.0 - [...] | + + + + + | [facility] | [address] | [place] | [phone] | | [facility] | | [address] | | | - LABORATORY | | | | + + + + + | [facility] | [address] | [place] | | | [facility] | | [address] | | | - LABORATORY | | | | + + + + + CA 19-9, Quant (01/17/2018 1601) + + [...] + | Performed at: 01 - [facility] [place] [address], | REFERENCE LAB | | [place], [place] [id number] Political Theory Professor: Olaf Zapata MD, | [facility] | | Phone: [phone] | | + + + + + + + + | Performing | Address | City/State/Zipcode | Phone Number | | Organization | | | | + + + + + | REFERENCE LAB | [address] | [place] [address] | [phone] | | [facility] | [address] | | | + [...] + | Performed at: 01 - [facility] [place] [address], | REFERENCE LAB | | [place], [place] [id number] Political Theory Professor: Olaf Zapata MD, | [facility] | | Phone: [phone] | | + + + + + + + + | Performing | Address | City/State/Zipcode | Phone Number | | Organization | | | | + + + + + | REFERENCE LAB | [address] | [place] [address] | [phone] | | [facility] | [address] | | | + + + + + Lactate Dehydrogenase (01/17/2018 1601) + +---------+ + + | Component | Value | Ref Range | Performed At | + +---------+ + + | LDH TOTAL | 240 (H) | 91 - 180 U/L | [facility] | | | | | [facility] | | | | | CENTER - | | | | | LABORATORY | + +---------+ + + + + | Specimen | + + | Blood | + + + + + + + | Performing | Address | City/State/Zipcode | Phone Number | | Organization | | | | + + + + + | [facility] | [address] | [place], [place] | [phone] | | [facility] | | [address] | | | - LABORATORY | | | | + + + + + | [facility] | [address] | [place], [place] | | | [facility] | | [address] | | | - LABORATORY | | [...] + + | [facility] | [address] | [place], [place] | [phone] | | [facility] | | [address] | | | - LABORATORY | | | | + + + + + | [facility] | [address] | [place] | | | [facility] | | [address] | | | - LABORATORY | | [...] 0.66 | 0.60 - 1.30 mg/dL | [facility] | | Serum/Plasma | | | [facility] | | | | | CENTER - | | | | | LABORATORY | + + + + + | eGFR if not | >60Comment: GLOMERULAR | >=60 mL/min/1.73m2 | [facility] | | TRISTANIAN | FILTRATION | | [facility] | | | RATE,ESTIMATED mL/min | | CENTER - | | | /1.81r5Cwhw than 60 | | LABORATORY | | [...] 8.7 | 8.3 - 10.5 mg/dL | [facility] | | | | | [facility] | | | | | CENTER - | | | | | LABORATORY | + + + + + | ALBUMIN | 2.3 (L) | 3.2 - 5.0 g/dL | [facility] | | | | | [facility] [...] + | BUN/CREA | 12.1 | | [facility] | | | | | [facility] | | | | | CENTER - | | | | | LABORATORY | + + + + + + + | Specimen | + + | Blood | + + + + + + + | Performing | Address | City/State/Zipcode | Phone Number | | Organization | | | | + + + + + | [facility] | [address] | [place] | [phone] | | [facility] | | [address] | | | - LABORATORY | | | | + + + + + | [facility] | [address] | [place], [place] | | | [facility] | | [address] | | | - LABORATORY | | | | + + + + + IMAGING REPORT - EXTERNAL SCAN (01/01/2018) + + + | Narrative | Performed At | + + + | Ordered by an | | | unspecified provider. 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
--- OUTSIDE RECORDS SUMMARY | 2018-04-17 16:01 | XMS | Clinical Summary ---
Demographics + + + | Address | [address] | | | [place] [address] | + + + | Home Phone | | + + + | Preferred Language | Unknown | + + + | Marital Status | | + + + | Gnosticist Affiliation | Unknown | + + + | Race | Unknown | + + + | Ethnic Group | Unknown | + + + Author + + + | Author | [facility] | | | and Kristianana | + + + | Organization | [facility] | | | and [...] Team Providers + +------+ + | Care Forepart Laster Name | Role | Phone | + [...] | the liver, unconfirmed.1. Presentation to the [facility] Emergency Room on January 01, 2018 with three days of right | | upper quadrant pain.2. CT Abdomen/pelvis on January 01, 2018 | | demonstrated an obstructing 25 mm mass in the gall bladder, | | intra- an extra-hepatic ductal dilation, regional malignant | | lymphadenopathy and diffuse liver metastases. Last Assessment & | | Plan: Janell Duval (CELL: [phone]) returned to clinic | | on 03/14/2018 with his son, Alfonso Duval of [place] (CELL | | [phone]) for follow up of his metastatic | [...] enroll in hospice | | care through [facility]. | + + [...] Encounter | | Yunier Sow MD | metastatic to liver | [...] | | | 2017 | | | Director Of Consumer Marketing | | +--------+ + + + + [...] + + | Performed at: 01 - [facility] [address], | REFERENCE LAB | | [place], [place] [id number] Credit Clerk: Olaf Zapata MD, | [facility] | | Phone: [phone] | | + + + + + + + + | Performing | Address | City/State/Zipcode | Phone Number | | Organization | | | | + + + + + | REFERENCE LAB | [address] | [place], [place] [address] | [phone] | | [facility] | Drive [...] + | Performed at: 01 - [facility] [place] [address], | REFERENCE LAB | | [place], [place] [id number] Credit Clerk: Olaf Zapata MD, | [facility] | | Phone: [phone] | | + + + + + + + + | Performing | Address | City/State/Zipcode | Phone Number | | Organization | | | | + + + + + | REFERENCE LAB | [address] | [place], [place] [address] | [phone] | | [facility] [place] | Drive [...] | | | Oral Anticoagulation | | [facility] | | | Range: 2.0 - [...] | + + + + + | [facility] | [address] | [place] | [phone] | | [facility] | | [address] | | | - LABORATORY | | | | + + + + + | [facility] | [address] | [place] | | | [facility] | | [address] | | | - LABORATORY | | [...] + | [facility] | [address] | [place], [place] | [phone] | | [facility] | | [address] | | | - LABORATORY | | | | + + + + + | [facility] | [address] | [place] | | | [facility] | | [address] | | | - LABORATORY | | | | + + + + + Lactate Dehydrogenase (01/17/2018 160) + +---------+ + + | Component | Value | Ref Range | Performed At | + +---------+ + + | LDH TOTAL | 240 (H) | 91 - 180 U/L | [facility] | | | | | [facility] | | | | | CENTER [...] [address] | [place] | [phone] | | [facility] | | [address] | | | - LABORATORY | | | | + + + + + | [facility] | [address] | [place] | | | [facility] | | [address] | | | - LABORATORY | | | | + + + + + CEA (01/17/2018 160) + +-------+ + + | Component | Value | Ref Range | Performed At | + +-------+ + + | CEA | 1.4 | 0.0 - 10.0 ng/mL | [facility] | | | | | [facility] | | | | | CENTER - | | | | | LABORATORY | + +-------+ + + + + | Specimen | + + | Blood | + + + + + + + | Performing | Address | City/State/Zipcode | Phone Number | | Organization | | | | + + + + + | [facility] | [address] | [place] | [phone] | | [facility] | | [address] | | | - LABORATORY | | | | + + + + + | [facility] | [address] | [place] | | | [facility] | | [address] | | | - LABORATORY | | [...] 0.66 | 0.60 - 1.30 mg/dL | [facility] | | Serum/Plasma | | | [facility] | | | | | CENTER - | | | | | LABORATORY | + + + + + | eGFR if not | >60Comment: GLOMERULAR | >=60 mL/min/1.73m2 | [facility]. | | NIGERIEN | FILTRATION | | [facility] | | | RATE,ESTIMATED mL/min | | CENTER - | | | /1.14m0Acts than 60 | | LABORATORY | | [...] 8.7 | 8.3 - 10.5 mg/dL | [facility] | | | | | [facility] | | | | | CENTER [...] + | BUN/CREA | 12.1 | | [facility] | | | | | [facility] | | | | | CENTER [...] [address] | [place] | [phone] | | [facility] | | [address] | | | - LABORATORY | | | | + + + + + | [facility] | [address] | [place] | | | [facility] | | [address] | | | - LABORATORY | | [...] +---------+--------+ +--------+-------+---------+ | HOSPICE | HOSPIC | [id number] | Indemn | | | | | [...] | | l | | 1954 | [phone] | [place] [address] | | | Servic | | | [address]9 | | | | es | | | | | + +--------+ +--------+ + + | JANELL DUVAL | Person | Self | [birth year] | Home: | [address] | | | al/Fam | | 1954 | [phone] | [place] [address] | | | bj | | | [address] | | + +--------+ +--------+ + + | JANELL DUVAL | Specia | Self | [birth year] | Home: | [address] | | [address] | | 1955 | [phone] | [place] [address] | | | Jacinto | | | [address] | | | | es | | | | | + +--------+ +--------+ + +"
--- OUTSIDE RECORDS SUMMARY | 2018-04-17 16:14 | XMS | Encounter Summary ---
Demographics + + + | Address | [address] | | | [place] [address] | + + + | Home Phone | | + + + | Preferred Language | Unknown | + + + | Marital Status | | + + + | Gnosticism Affiliation | Unknown | + + + | Race | Unknown | + + + | Ethnic Group | Unknown | + + + Author + + + | Author | [facility] | | | and Kristianana | + + + | Organization | [facility] | | | and Kristianana [...] Team Providers + +------+ + | Care Coil Wrapper Name | Role | Phone | + [...] [place] | | | | | [address] | [place] [address] | | | | | [place] [address] | [phone] | | | | | [phone] | | | +--------+ + + + [...]
--- OUTSIDE RECORDS SUMMARY | 2018-04-17 16:15 | XMS | Encounter Summary ---
Demographics + + + | Address | [address] | | | [place] [address] | + + + | Home Phone | | + + + | Preferred Language | Unknown | + + + | Marital Status | | + + + | Caodaism Affiliation | Unknown | + + + | Race | Unknown | + + + | Ethnic Group | Unknown | + + + Author + + + | Author | [facility] | | | and Kristianana | + + + | Organization | [facility] | | | and [...] Team Providers + +------+ + | Care Side Stapler Name | Role | Phone | + [...] | | | | | (HCC) | [place] [address] | | | | | | | Phone: | | | | | | | [phone] | | | | | | | Fax: | | | | | | | [phone] | | +--------+ + + + + [...] | | | bile ducts | [address] | [address] [place] | | | | | (HCC) | [place], | [place], [place] | | | | | Malignant | [place] | [address] Phone: | | | | | neoplasm of | [address] | [phone] | | | | | intrahepatic | Phone: | Fax: | | | | | bile ducts | [phone] | [phone] | | | | | (HCC) | Fax: | | | | | | Procedures | [phone] | | | | | | [address] | | | + +--------+ + + + + Encounter Details +--------+ + + + + | Date | Type | Department | Care Team | Description | +--------+ + + + + | 03/14/ | Hospital | [facility] | Eriberto, | Cholangiocarcinoma | | 2018 | Encounter | [facility] | Yunier Sow MD [address] | metastatic to liver | | | | ONCOLOGY CLINIC [address] [place] | (HCC) | | | | [address] [place] | [place] [address] | | | | | [place] [address] | [phone] | | | | | [phone] | | | +--------+ + + + [...] fro m the original. Hematology/Oncology Progress Note [facility] [place] Pt. Name/Age/: Janell Duval 63 y.o. 1955 Med. Record Number: [id number] Date of admission: 03/14/2018 The patient's primary care provider is Mendel Novoa MD. Identifying Statement: Janell Duval is a 63 y.o. 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 The patient chart and medications were reviewed in detail and the patient was seen and exam ined. 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 1. Presentation to the [facility] Emergency Room on January 01, 2018 with three days of right upper quadrant pain. 2. CT Abdomen/pelvis on January 01, 2018 demonstrated an obstructing 25 mm mass in the gall wilfrido dder, intra- an extra-hepatic ductal dilation, regional malignant lymphadenopathy and diffus e liver metastases. Current Assessment & Plan Janell Duval (CELL: [phone]) returned to clinic on 03/14/2018 with his son, Jose Juan Duval of [place] (CELL [phone]) for follow up of his metastatic cholangiocarcin [...] consents to enroll in hospice care through [facility]. Review of Systems: Constitutional: Energy remains [...] Pain (or SOB ). Procedure: Referral to [facility]. Yunier Wei MD Portions of this chart may have been created with [employer] voice recognition software. Occasi onal wrong-word or [...]
--- OUTSIDE RECORDS SUMMARY | 2018-04-17 16:15 | XMS | Encounter Summary ---
Demographics + + + | Address | [address] | | | [place] [address] | + + + | Home Phone | | + + + | Preferred Language | Unknown | + + + | Marital Status | | + + + | Scientologist Affiliation | Unknown | + + + | Race | Unknown | + + + | Ethnic Group | Unknown | + + + Author + + + | Author | [facility] | | | and Kristianana | + + + | Organization | [facility] | | | and Kristianana | [...] Team Providers + +------+ + | Care Molecular Physicist Name | Role | Phone | + +------+ + | Mendel Novoa MD | PCP | | + +------+ + Encounter Details +--------+ + + + + | Date | Type | Department | Care Team | Description | +--------+ + + + + | 01/17/ | Orders Only | [facility] | Maryuri [place], | | | 2017 | | [facility] | Senior Statistical Programmer | | | | | ONCOLOGY CLINIC [address] | | | | | | [address] | | | | | | [place] [address] | | | | | | [phone] | | | +--------+ + + + [...]
--- OUTSIDE RECORDS SUMMARY | 2018-04-17 16:15 | XMS | Encounter Summary ---
Demographics + + + | Address | [address] | | | [place] [address] | + + + | Home Phone | | + + + | Preferred Language | Unknown | + + + | Marital Status | | + + + | Mandaen Affiliation | Unknown | + + + | Race | Unknown | + + + | Ethnic Group | Unknown | + + + Author + + + | Author | [facility] | | | and Kristianana | + + + | Organization | [facility] | | | and Kristianana [...] Team Providers + +------+ + | Care Hoisting Engineer Pile Driving Name | Role | Phone | + [...] [place] | | | | | [address] [place] | [place] [address] | | | | | [place] [address] | [phone] | | | | | [phone] | | | +--------+ + + + [...]
--- OUTSIDE RECORDS SUMMARY | 2018-04-17 16:15 | XMS | Encounter Summary ---
Demographics + + + | Address | [address] | | | [place] [address] | + + + | Home Phone | | + + + | Preferred Language | Unknown | + + + | Marital Status | | + + + | Buddhist Affiliation | Unknown | + + + | Race | Unknown | + + + | Ethnic Group | Unknown | + + + Author + + + | Author | [facility] | | | and Kristianana | + + + | Organization | [facility] | | | and Kristianana [...] Team Providers + +------+ + | Care Linseed Oil Refiner Name | Role | Phone | + [...] [address] | | | | | [phone] | [place] [address] | | +--------+ + + + + [...]
--- OUTSIDE RECORDS SUMMARY | 2018-04-17 16:16 | XMS | Encounter Summary ---
Demographics + + + | Address | [address] | | | [place] [address] | + + + | Home Phone [...] | Author | [facility] | | | and Kristianana | + + + | Organization | [facility] | | | and [...] Team Providers + +------+ + | Care Rattling Machine Tender Name | Role | Phone | + [...] | | | Oncology | Consult/poss | [address] | Yunier Sow MD | | | | | ible | Graham Avfredo | [address] | | | | | Cholangiocar | [place], | [place] | | | | | cinoma/Bright | [place] | [place], [place] | | | | | [place] | [address] | [address] Phone: | | | | | Q to see | Phone: | [phone] | | | | | w/o | [phone] | Fax: | | | | | pathology | Fax: | [phone] | | | | | labs/ arm | [phone] | | | | | | CBC [...] | | | | | | | AR OFFICE | | | | | | [...] + + | 01/17/ | Hospital | [facility] | [place], | Malignant neoplasm | | 2018 | Encounter | [facility] | Yunier Sow MD [address] | of intrahepatic bile | | | | [facility] [address] [place] | ducts (HCC) | | | | [address] [place] | [place] [address] | (Primary Dx); | | | | [place] [address] | [phone] | Cholangiocarcinoma | | | | [phone] | | metastatic to liver | | [...] [facility] | | | | [facility] | | | | | [facility] - [...] [address] | [place] | [phone] | | [facility] | | [address] | | | - LABORATORY | | | | + + + + + | [facility] | [address] | [place] | | | [facility] | | [address] | | | - LABORATORY | | | | + + + + + Protime INR (01/17/2018 1601) + + + + + | Component | Value | Ref Range | Performed At | + + + + + | Protime | 14.6 (H) | 11.3 - 13.9 seconds | [facility] | | | | | [facility] | | | | | [facility] - | | | | | LABORATORY | + + + + + | INR | 1.15 (H)Comment: Usual | 0.90 - 1.10 | [facility] | | | Oral Anticoagulation | | [facility] | | | Range: 2.0 - | [...] [address] | [place] | [phone] | | [facility] | | [address] | | | - LABORATORY | | | | + + + + + | [facility] | [address] | [place] | | | [facility] | | [address] | | | - LABORATORY | | [...] + | Performed at: 01 - [facility] [place] [address], | REFERENCE LAB | | [place], [place] [id number] Bunch Maker Hand: Olaf Zapata MD, | [facility] | | Phone: [phone] | | + + + + + + + + | Performing | Address | City/State/Zipcode | Phone Number | | Organization | | | | + + + + + | REFERENCE LAB | [address] | [place] [address] | [phone] | | [facility] | Drive [...] + | Performed at: 01 - [facility] [place] [address], | REFERENCE LAB | | [place], [place] [id number] Bunch Maker Hand: Olaf Zapata MD, | [facility] | | Phone: [phone] | | + + + + + + + + | Performing | Address | City/State/Zipcode | Phone Number | | Organization | | | | + + + + + | REFERENCE LAB | [address] | [place] [address] | [phone] | | [facility] | [address] | | | + + + + + Lactate Dehydrogenase (01/17/2018 1601) + +---------+ + + | Component | Value | Ref Range | Performed At | + +---------+ + + | LDH TOTAL | 240 (H) | 91 - 180 U/L | [facility] | | | | | [facility] | | | | | [facility] - | | | | | LABORATORY | + +---------+ + + + + | Specimen | + + | Blood | + + + + + + + | Performing | Address | City/State/Zipcode | Phone Number | | Organization | | | | + + + + + | [facility] | [address] | [place], [place] | [phone] | | [facility] | | [address] | | | - LABORATORY | | | | + + + + + | [facility] | [address] | [place], [place] | | | [facility] | | [address] | | | - LABORATORY | | [...] [facility] | | | | [facility] | | | | | [facility] [...] + | [facility] | [address] | [place], [place] | [phone] | | [facility] | | [address] | | | - LABORATORY | | | | + + + + + | [facility] | [address] | [place] | | | [facility] | | [address] | | | - LABORATORY | | [...] >=60 mL/min/1.73m2 | [facility] | | [facility] | FILTRATION | | [facility] | | | RATE,ESTIMATED mL/min | | CENTER - | | | /[id number] than 60 | | LABORATORY | | [...] + | [facility] | 12.1 | | [facility] | | | | | [facility] | | | | | CENTER - [...] [address] | [place] | [phone] | | [facility] | | [address] | | | - LABORATORY | | | | + + + + + | [facility] | [address] | [place], [place] | | | [facility] | | [address] | | | - LABORATORY | | [...]
[2018-04-17] MEDS ORDERED: ZOFRAN ODT4 MG PO (17:55)
== END 2018-04-17 18:11 | disposition home or self-care (01) ==
LOC: ED 14:42
DX: E86.0 Dehydration (principal); N17.9 Acute kidney failure, unspecified; C22.1 Intrahepatic bile duct carcinoma; Z79.899 Other long term (current) drug therapy; Z79.891 Long term (current) use of opiate analgesic
CPT/HCPCS: 71045; 80053; 83605; 83690; 85025; 96360; 96361; 99285; J7030